=== PATIENT | female | born 1960 | race Caucasian/White ===

== ENCOUNTER → 2020-04-30 13:29 | Outpatient (CLI) | payer OTHER, SELFPAY ==
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
== END ==
PROVIDERS: PCP Family Medicine; Visit Provider Family Medicine
DX: M54.6 Pain in thoracic spine (principal); M19.012 Primary osteoarthritis, left shoulder
CPT/HCPCS: 72072; 73020

== ENCOUNTER 2020-05-04 17:46 | Outpatient (CLI) | payer OTHER, SELFPAY ==
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
== END 2020-05-04 17:47 | disposition home or self-care (01) ==
PROVIDERS: PCP Family Medicine; Visit Provider Family Medicine
DX: M47.812 Spondylosis without myelopathy or radiculopathy, cervical region (principal); R51 Headache
CPT/HCPCS: 70450; 72125

== ENCOUNTER → 2020-07-09 17:55 | Outpatient (CLI) | payer OTHER, SELFPAY ==
--- NOTE | ~2020-07-09 | MR_ITS ---
EXAMINATION: MR shoulder LT wo con DATE: 07/09/2020 18:55 INDICATION: Left shoulder pain. Inability to elevate the left arm. TECHNIQUE: Magnetic resonance imaging (MRI) of the left shoulder was performed without intravenous co ntrast. Sequences included axial PD-weighted FS FSE, coronal oblique PD-weighted FS FSE, coronal obli que T2-weighted FS FSE, sagittal PD-weighted FS FSE, and sagittal T1-weighted SE. COMPARISON: None. FINDINGS: Coracoacromial arch: The acromion undersurface is flat in morphology (type I). The coracoacromial ligament is normal. Mild acromioclavicular osteoarthritis. Rotator cuff: The supraspinatus, infraspinatus and teres minor tendons are normal. The subscapularis tendon is norm al. Normal rotator cuff muscle bulk and signal. Biceps tendon, glenoid labrum and glenohumeral cartilage: Mild tendinopathy of the intra-articular long head biceps tendon without discrete tear. Glenoid labru m is small but without discrete tear. There is mild posterior predominant nonuniform joint space narr owing with cartilage thinning but with smooth chondral surface. Fluid: Physiologic amount of fluid in the glenohumeral joint and biceps tendon sheath. No loose osteochondra l bodies. Mild increased fluid signal in the subacromial/subdeltoid bursa consistent with minimal bur sitis. Bones: Bone alignment is normal. No fracture or pathologic marrow replacing process. IMPRESSION: 1. Mild glenohumeral and acromioclavicular osteoarthritis. 2. Mild tendinopathy without discrete tear of the intra-articular long head biceps tendon. 3. Minimal subacromial/subdeltoid bursitis. Reviewed, dictated and finalized at location A. IMPRESSION: 1. Mild glenohumeral and acromioclavicular osteoarthritis. 2. Mild tendinopathy without discrete tear of the intra-articular long head bic eps tendon. 3. Minimal subacromial/subdeltoid bursitis.
== END ==
PROVIDERS: PCP Family Medicine; Visit Provider Family Medicine
DX: M19.012 Primary osteoarthritis, left shoulder (principal); M75.52 Bursitis of left shoulder
CPT/HCPCS: 73221

== ENCOUNTER → 2020-08-14 10:48 | Outpatient (CLI) | payer OTHER, SELFPAY ==
--- NOTE | ~2020-08-14 | CT_ITS ---
EXAMINATION: CT abdomen pelvis wo con DATE: 08/14/2020 11:04 INDICATION: Lower abdominal pain TECHNIQUE: Computed tomography (CT) of the abdomen and pelvis was performed without intravenous contr ast. Automated exposure control and iterative reconstruction technique were employed. The dose-length product was 957.69 mGy-cm. COMPARISON: None FINDINGS: Linear band of likely postoperative scarring at the left breast. Lung bases are clear. Heart size is normal. No pericardial or pleural effusion. There are 3 low-attenuation hepatic cysts the largest in the right lobe measuring 11 mm and unchanged 12 mm exophytic cyst along the lateral margin of the lef t hepatic lobe. Gallbladder, spleen, pancreas and bilateral adrenal glands are normal. A couple low-a ttenuation left renal cysts the largest measuring 2.0 cm at the upper pole. 8 nonobstructing stones i n the right kidney the largest measuring 5 mm at the lower pole a single 1 mm stone in the mid left k idney. No hydronephrosis or stones along the ureters. Bladder is normal. The uterus is not identified and has likely been surgically resected. There is moderate colonic diverticulosis with a sigmoid pre dominance. There is no adjacent inflammatory change to suggest diverticulitis. Small bowel and appen justino are normal. No free intraperitoneal gas or fluid. No pathologically enlarged abdominal or pelvic lymphadenopathy. Mild lumbar spondylosis. IMPRESSION: 1. Bilateral nonobstructing nephrolithiasis. 2. Diverticulosis. Reviewed, dictated and finalized at [facility]. COURIER
== END ==
PROVIDERS: Visit Provider Family Medicine
DX: N20.0 Calculus of kidney (principal); K57.30 Diverticulosis of large intestine without perforation or abscess without bleeding; K76.89 Other specified diseases of liver; N28.1 Cyst of kidney, acquired
CPT/HCPCS: 74176

== ENCOUNTER 2021-01-13 18:01 | Emergency (ER) | payer OTHER, SELFPAY ==
[2021-01-13] VITALS (9 sets, daily range): BP systolic 164–197; BP diastolic 100–107; PULSE 61–77; RESP 14–23; TEMP 36.7–36.8; O2SAT 98–100
--- NOTE | ~2021-01-13 | CT_ITS ---
EXAMINATION: CT abdomen pelvis wo con DATE: 01/13/2021 20:39 INDICATION: Right upper quadrant and epigastric abdominal pain TECHNIQUE: Computed tomography (CT) of the abdomen and pelvis was performed without intravenous contr ast. Automated exposure control and iterative reconstruction technique were employed. Exam dose: 105 7.97 mGy-cm total exam DLP. COMPARISON: 08/14/2020 CT abdomen pelvis 06/19/2018 CT abdomen pelvis FINDINGS: The lung bases are clear of infiltrate or consolidation. Heart size is within normal range. No pericardial or pleural effusion. Small sliding hiatal hernia. Stable up to 12 mm hepatic cyst. No interval hepatic space-occupying mass lesion. The gallbladder is present. No bile duct or pancreatic duct dilatation. No pancreatic mass lesion or calcification. Normal splenic size. Normal morphology of the adrenal glands. Up to approximately 5 right obstructing renal calculi ranging from subtle punctate calculi 2 5 mm siz e. No apparent right renal mass lesion. Stable up to approximately 2 cm left renal cysts. Approximately 2 mm nonobstructing left renal calculus. No left or right ureteral calculus or hydroureteronephrosis. Normal caliber of the abdominal aorta. No intraperitoneal or retroperitoneal or pelvic mass lesion or adenopathy or ascites. Status post hysterectomy. The urinary bladder is unremarkable. Diverticulosis of the left colon; no CT evidence of diverticulitis. Normal appendix. No bowel obstruction, bowel wall thickening, pneumatosis or intraperitoneal free air. No suspicious osteolytic or osteoblastic lesions. IMPRESSION: Stable hepatic and left renal cysts Bilateral nonobstructive nephrolithiasis Diverticulosis of the colon; no CT evidence of diverticulitis Small sliding hiatal hernia Reviewed, dictated and finalized at Location A. Reviewed, dictated and finalized at location A.
--- NOTE | ~2021-01-13 | XR_ITS ---
XR chest 2V DATE: 01/13/2021 19:34 INDICATION: Midsternal and right chest pain for 8 days. TECHNIQUE: PA and lateral views COMPARISON: 02/21/2008 two-view chest FINDINGS: Normal heart size. Mild aortic unfolding/tortuosity. No hilar or mediastinal enlargement is evident. No pulmonary infiltrate or consolidation, pleural effusion or pulmonary vascular congestion or pneumo thorax. Diffuse osteopenia. Dextro scoliosis and degenerative change of the thoracic spine. IMPRESSION: No active cardiopulmonary disease Reviewed, dictated and finalized at location A.
--- NOTE | 2021-01-13 18:11 | ECG_ITS ---
Measurements Intervals [place] Rate: 54 P: 27 [place]: 158 QRS: 27 QRSD: 93 T: 27 QT: 416 QTc: 397 Interpretive Statements SINUS BRADYCARDIA BORDERLINE ST ABNORMALITY- INFERIOR LEADS BASELINE ARTIFACT- I, II, AVR, AVL BORDERLINE ECG Electronically Signed On 01-13-2021 20:00:45 CDT by Gary Aaron D.O.
[2021-01-13 18:30] LABS: Basophils Percent Auto 0.6 % (0.2-1.2); Eosinophils Absolute Auto 0.2 K/mm3 (0-0.3); Hematocrit 40.2 % (37.0-47.0); Hemoglobin 13.2 g/dL (12.0-15.0); Immature Granulocyte Absolute 0.01 K/mm3 (0.00-0.031); Immature Granulocyte Percent A 0.2 % (0-0.5); Lymphocytes Absolute Auto 1.55 K/mm3 (0.9-3.2); Lymphocytes Percent Auto 29.5 % (18.3-44.2); Mean Corpuscular HGB Conc 32.8 g/dl (32-36); Mean Corpuscular Hemoglobin 30.1 pg (26-34); Mean Corpuscular Volume 91.8 fl (80-100); Mean Platelet Volume 9.3 fl (7.4-10.4); Monocytes Absolute Auto 0.4 K/mm3 (0.1-0.6); Monocytes Percent Auto 7.6 % (2.6-8.5); Neutrophils Absolute Auto 3.1 K/mm3 (1.3-6.7); Neutrophils Percent Auto 59.1 % (45.5-73.1); Platelet Count Result 257 k/mm3 (150-375); Red Blood Count 4.38 M/mm3 (4.2-5.4); Red Cell Distribution Width 12.7 % (11.5-14.5); White Blood Count 5.3 K/mm3 (4.5-10.0)
[2021-01-13 18:41] LABS: Anion Gap 5 mmol/L (8-16); Blood Urea Nitrogen 13 mg/dL (7-17); Calcium 9.7 mg/dL (8.4-10.2); Carbon Dioxide 30 mmol/L (22-30); Chloride 105 mmol/L (98-107); Estimated CRCL calculation 90 ml/min; Estimated Glomerular Filt Rate > 60; Glucose 100 mg/dL (65-105); INR 1.1; Prothrombin Time 14.4 Seconds (11.1-14.7); Sodium 140 mmol/L (137-145)
[2021-01-13 18:42] LABS: Partial Thromboplastin Time 27.7 SECONDS (22.3-36.8)
[2021-01-13 18:52] LABS: Troponin I < 0.012 ng/mL (0.000-0.034)
--- NOTE | 2021-01-13 20:56 | ED.GENADULT ---
HPI - General Adult General Chief complaint: Chest Pain Stated complaint: midsternal chest pain Time Seen by Provider: 01/13/21 20:13 History of Present Illness HPI narrative: Patient is a 60-year-old female who presents to the emergency department with chief complaint of epigastric/chest pain. Patient reports has been having discomfort for the last 8 to 9 days reports it radiates to her back. The patient states not improved by anything and nor is it worsened by anything. Patient denies nausea vomiting denies fevers patient reports that she has prior surgical history for [employer] surgeries but is not had her gallbladder or appendix removed. Patient states that the discomfort in her belly feels similar to when she had a laparoscopy and had pain from the gas postoperative. Related Data Home Medications Medication Instructions Recorded Confirmed latanoprost 0.005 % eye drops 1 drop EACH EYE DAILY 08/27/19 04/30/20 Allergies Allergy/AdvReac Type Severity Reaction Status Date / Time iodine Allergy Intermediate Swelling Verified 12/08/20 15:48 Iodinated Contrast Media Allergy Unknown Swelling Verified 12/08/20 15:48 of Lip/Tongue/Throat latex Allergy Unknown Rash Verified 12/08/20 15:48 povidone Allergy Unknown Rash Verified 12/08/20 15:48 soap Allergy Unknown rash Verified 12/08/20 15:48 Contrast Media Allergy Unknown Swelling Uncoded 12/08/20 15:48 of Lip/Tongue/Throat Review of Systems Review of Systems: Narrative: A 10 system review of systems was completed on the patient and is negative except for what is stated in the HPI. Nursing and ancillary documentation was reviewed. [facility] Family History Family History Father Hypertension Family history of alcoholism Cerebrovascular accident Acute myocardial infarction Family history of heart disease in male family member before age 55 Mother Family history of alcoholism Family history of chronic obstructive pulmonary disease Grandparent Family history of hearing loss Family history of osteoporosis Family history of glaucoma Family history of chronic obstructive pulmonary disease Family history of Alzheimer's disease Family history of heart disease in male family member before age 55 Other Family history of arthritis Family history of cardiovascular disease Family history of gastrointestinal disorder Social History Social History Smoking status: Never smoker Second hand tobacco smoke exposure: No Alcohol intake: never Substance use: never Exam Narrative: Exam Narrative: GENERAL: Well-appearing, well-nourished, and in no acute distress. HEAD: Normocephalic, atraumatic. EYES: PERRLA and EOMI. ENT: Nares clear, no rhinorrhea or epistaxis. Mucous membranes moist. NECK: Supple. CHEST: Clear to auscultation. No respiratory distress. HEART: Regular rate and rhythm. No murmur heard. Normal peripheral pulses. ABDOMEN: Soft, tenderness to palpation in the epigastric region and right upper quadrant, nondistended, normal active bowel sounds. EXTREMITIES: Normal range of motion. No edema. SKIN: Warm, dry, no rash. NEURO: No focal deficits. Alert and oriented x3. PSYCH: Normal mood and affect. Course Vital Signs Vital signs: Vital Signs Temperature 36.7 C 01/13/21 18:12 Pulse Rate 68 01/13/21 18:12 Respiratory Rate 20 01/13/21 18:12 Blood Pressure 178/100 H 01/13/21 18:12 Pulse Oximetry 99 01/13/21 18:12 Temperature 36.8 C 01/13/21 20:12 Pulse Rate 77 01/13/21 21:01 Respiratory Rate 23 H 01/13/21 21:01 Blood Pressure 197/104 H 01/13/21 20:16 Pulse Oximetry 100 01/13/21 21:01 Medical Decision Making Vital Signs Vital Signs: Vital Signs Temperature 36.7 C 01/13/21 18:12 Pulse Rate 68 01/13/21 18:12 Respiratory Rate 20 01/13/21 18:12 Blood Pressure 178/1
[2021-01-13] MEDS: DICYCLOMINE HCL INJ 20 MG/2 ML VIAL IM (21:19)
[2021-01-13] MEDS: ONDANSETRON INJ 4 MG/2 ML VIAL IV PUSH (21:21)
[2021-01-13 21:24] LABS: Alanine Aminotransferase 14 U/L (4-35); Albumin Level 4.5 g/dL (3.5-5.1); Alkaline Phosphatase 76 U/L (38-126); Aspartate Amino Transferase 19 U/L (14-36); Bilirubin,Total 0.4 mg/dL (0.2-1.3); Lipase 52 U/L (23-300)
[2021-01-13] MEDS: SODIUM CHLORIDE 0.9% IV 1,000 ML 999 ML IV CONT (21:24)
--- NOTE | 2021-01-13 21:49 | PC.NURSE ---
Per EDP [place], no 3 hour troponin needed.
[2021-01-13] MEDS: BELLADONNA ALK/PHENOB ELIX 10 ML, MAG HYDROX/ALUMINUM HYD/SIMETH 30 ML, LIDOCAINE HCL 2... PO (21:55)
== END 2021-01-13 22:49 | disposition home or self-care (01) ==
PROVIDERS: Emergency Medicine; Emergency Provider Emergency Medicine; PCP Family Medicine
DX: K44.9 Diaphragmatic hernia without obstruction or gangrene (principal); K29.00 Acute gastritis without bleeding
CPT/HCPCS: 36415; 71046; 74176; 80048; 80076; 83690; 84484; 85025; 85610; 85730; 93005; 96361; 96372; 96374; 99284; A9270; J0500; J2405; J7030

== ENCOUNTER → 2021-10-28 10:15 | Outpatient (CLI) | payer OTHER, SELFPAY ==
--- NOTE | ~2021-10-28 | XR_ITS ---
UGI-AIR CONTRAST/SMALL BOWEL INDICATION: Diaphragmatic hernia. Abdomen pain. TECHNIQUE: Serial images of the upper GI tract structures and small bowel are performed following ora l administration of barium using double contrast technique. COMPARISON: CT dated 01/13/2021 FINDINGS: There is normal esophageal contractility with normal passage of contrast into the stomach. There is a small sliding hiatal hernia with gastroesophageal reflux. There is mild persistent narrowi ng of the pylorus with incomplete distention of the duodenal bulb. There is mildly delayed passage of contrast from the stomach into the small bowel. The duodenal sweep is in normal position. The mucos al pattern of the small bowel is unremarkable with normal transit time to the colon. IMPRESSION: 1: Mild persistent narrowing of the pylorus with incomplete distention of the duodenal bulb, most lik bin related to underlying inflammatory disease/gastritis. Recommend GI consultation. 2: Small sliding hiatal hernia with gastroesophageal reflux. Reviewed, dictated and finalized at location B. AND FARMER IMPRESSION: 1: Mild persistent narrowing of the pylorus with incomplete distention of the d uodenal bulb, most likely related to underlying inflammatory disease/gastritis. Recommend GI consultation. 2: Small sliding hiatal hernia with gastroesophageal reflux.
== END ==
PROVIDERS: Visit Provider Family Medicine
DX: K44.9 Diaphragmatic hernia without obstruction or gangrene (principal); K21.9 Gastro-esophageal reflux disease without esophagitis
CPT/HCPCS: 74246; 74248

== ENCOUNTER 2021-11-11 08:50 | Outpatient (CLI) | payer OTHER, SELFPAY | END 2021-11-11 08:51 | disposition home or self-care (01) | LOC: ANHBWCLAB 08:51 | PROVIDERS: PCP Family Medicine; Visit Provider Family Medicine | DX: K44.9 Diaphragmatic hernia without obstruction or gangrene (principal); K21.9 Gastro-esophageal reflux disease without esophagitis | CPT/HCPCS: 36415; 86003 ==

== ENCOUNTER 2021-11-12 10:53 | Outpatient (CLI) | payer OTHER, SELFPAY ==
[2021-11-16 18:44] LABS: H pylori Ag Stool Not Detected (Not Detected)
== END 2021-11-12 10:54 | disposition home or self-care (01) ==
PROVIDERS: PCP Family Medicine; Visit Provider Family Medicine
DX: K44.9 Diaphragmatic hernia without obstruction or gangrene (principal); K21.9 Gastro-esophageal reflux disease without esophagitis
CPT/HCPCS: 87338

== ENCOUNTER 2021-11-17 07:12 | Outpatient (CLI) | payer OTHER, SELFPAY ==
--- NOTE | ~2021-11-17 | CT_ITS ---
EXAMINATION: CT abdomen wo con DATE: 11/17/2021 07:33 INDICATION: Unspecified abdominal pain TECHNIQUE: Computed tomography (CT) of the abdomen was performed without intravenous contrast. The do se-length product (DLP) was 913.08 mGy-cm. Automated exposure control and iterative reconstruction te chnique were employed. COMPARISON: 01/13/2021 FINDINGS: Minimal dependent atelectasis is present in the lung bases. The heart size is normal. There is a large volume of ascites. There is irregular wall thickening of the gastric antrum. The body and fundus of the stomach mildly distended. Although limited by absence of intravenous contrast, areas o f nodular peritoneal thickening are identified. There is infiltration of the omentum and small bowel mesentery. Cysts of the liver measure up to 11 mm. The spleen, pancreas, gallbladder, and adrenal gla nds are normal. There is a 2.3 cm cyst of the left kidney. Nonobstructing stones of the right kidney measure up to 6 mm. Is a 3 mm nonobstructing stone of the left kidney. IMPRESSION: 1. Malignant stricture of the gastric antrum, peritoneal carcinomatosis, and infiltration of the omen kaylee and small bowel mesentery, consistent with metastatic disease. 2. Large volume ascites. Reviewed, dictated and finalized at location A. RVISOR TITLE IMPRESSION: 1. Malignant stricture of the gastric antrum, peritoneal carcinomatosis, and in filtration of the omentum and small bowel mesentery, consistent with metastatic disease. 2. Large volume ascites.
--- NOTE | ~2021-11-17 | XR_ITS ---
EXAMINATION: XR barium swallow w SBFT DATE: 11/17/2021 09:59 INDICATION: Unspecified abdominal pain and distention. TECHNIQUE: The patient drank thick barium, gas-producing crystals, and thin barium. Fluoroscopy of th e esophagus, stomach, and small bowel was performed. Fluoroscopy exposure time was 0.4 minutes. Radio graphs of the abdomen were obtained. The total number of images was 233. COMPARISON: CT abdomen 11/17/2021 FINDINGS: ESOPHAGRAM: There is no mass or stricture of the esophagus. Esophageal motility is normal. There is no hiatal her karly. SMALL BOWEL SERIES: There is a stricture of the gastric antrum and pylorus. Contrast had progressed only to the proximal duodenum at 2 hours, and the exam was ended at that time. IMPRESSION: 1. Malignant stricture of the gastric antrum and pylorus. Paracentesis is recommended for diagnosis. Reviewed, dictated and finalized at location A. BUILDER WOOD IMPRESSION: 1. Malignant stricture of the gastric antrum and pylorus. Paracentesis is recom mended for diagnosis.
== END 2021-11-17 07:13 | disposition home or self-care (01) ==
LOC: ANHIMG 07:13
PROVIDERS: PCP Family Medicine; Visit Provider Family Medicine
DX: R10.9 Unspecified abdominal pain (principal); K44.9 Diaphragmatic hernia without obstruction or gangrene
CPT/HCPCS: 74150; 74240

== ENCOUNTER 2021-11-17 16:37 | Inpatient (IN) | payer OTHER, SELFPAY ==
--- NOTE | ~2021-11-17 | US_ITS ---
EXAMINATION: US venous doppler [facility] DATE: 11/18/2021 12:12 INDICATION: Bilateral lower limb edema TECHNIQUE: Malcolm scale images without and with compression and Doppler images of the bilateral lower e xtremity veins were obtained. COMPARISON: None FINDINGS: The right common femoral vein, profunda femoral vein, femoral vein, popliteal vein, peroneal trunk, p osterior tibial veins, and greater saphenous vein are patent. The left common femoral vein, profunda femoral vein, femoral vein, popliteal vein, peroneal trunk, po sterior tibial veins, and greater saphenous vein are patent. IMPRESSION: 1. Patent bilateral lower extremity veins. No evidence of deep venous thrombosis. Reviewed, dictated and finalized at location A. H REPAIR PERSON IMPRESSION: 1. Patent bilateral lower extremity veins. No evidence of deep venous thrombosi s.
--- NOTE | ~2021-11-17 | US_ITS ---
EXAMINATION: US paracentesis abd w/image DATE: 11/18/2021 14:13 INDICATION: Ascites. TECHNIQUE: The procedure and its risks and benefits were discussed with the patient. Potential risks discussed included bleeding and infection. The skin was prepped and draped in sterile fashion. 1% lid ocaine was used for local anesthesia. Under ultrasound guidance, a 5 Fr catheter with trochar was adv anced into the ascites in the left lower quadrant. Fluid was aspirated into vacuum bottles. The andrés ter was removed, and a dressing was applied. There were no immediate complications. FINDINGS: Ultrasound images demonstrate ascites and the catheter within the fluid. IMPRESSION: 1. Successful ultrasound-guided paracentesis yielding 3650 mL of clear yellow fluid. Reviewed, dictated and finalized at location A. N DRIER OPERATOR
[2021-11-17 17:16] VITALS: BMI 35.0
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
[2021-11-17 20:00] VITALS: BP 133/84; PULSE 84; RESP 18; TEMP 36.4; O2SAT 97
[2021-11-17 20:18] LABS: INR 1.2; Prothrombin Time 14.3 Seconds (11.1-14.7)
[2021-11-17 20:23] LABS: Alanine Aminotransferase 13 U/L (4-35); Alkaline Phosphatase 81 U/L (38-126); Anion Gap 8 mmol/L (8-16); Aspartate Amino Transferase 21 U/L (14-36); Bilirubin,Total 0.5 mg/dL (0.2-1.3); Blood Urea Nitrogen 13 mg/dL (7-17); Calcium 9.1 mg/dL (8.4-10.2); Carbon Dioxide 26 mmol/L (22-30); Chloride 105 mmol/L (98-107); Estimated CRCL calculation 88 ml/min; Estimated Glomerular Filt Rate > 60; Glucose 100 mg/dL (65-110); Potassium 3.7 mmol/L (3.4-5.0); Sodium 139 mmol/L (137-145)
[2021-11-17 20:31] LABS: Lactic Acid Reflex 0.6 mmol/L (0.7-2.1)
[2021-11-17 20:31] LABS: Magnesium 2.2 mg/dL (1.6-2.3)
[2021-11-17 21:03] VITALS: PULSE 84
[2021-11-17] MEDS: METOPROLOL TARTRATE INJ 5 MG/5 ML VIAL IV PUSH (21:03)
[2021-11-17] MEDS: PANTOPRAZOLE SODIUM IV 40 MG VIAL IV PUSH (21:04)
[2021-11-18] VITALS (11 sets, daily range): BP systolic 111–135; BP diastolic 63–93; PULSE 68–88; RESP 15–21; TEMP 36.2–37; O2SAT 95–98
--- NOTE | 2021-11-18 | ECG_ITS ---
Measurements Intervals [place] Rate: 71 P: 39 [place]: 150 QRS: 18 QRSD: 85 T: -12 QT: 393 QTc: 429 Interpretive Statements SINUS RHYTHM MINIMAL Q WAVES- HIGH LATERAL LEADS BORDERLINE ST-T WAVE ABNORMALITY- ANTEROLAT/INF LEADS BASELINE ARTIFACT- V4-V6 BORDERLINE ECG Electronically Signed On 11-18-2021 16:15:40 PLUNGER MACHINE OPERATOR by Gary Aaron D.O.
[2021-11-18] MEDS: MORPHINE SULFATE (*CRX) 2 MG/ML INJ IV PUSH (01:10)
[2021-11-18] MEDS: DEXTROSE 5%/0.9% SOD CHL 1,000 ML 50 ML IV CONT (04:05)
[2021-11-18] MEDS: ONDANSETRON INJ 4 MG/2 ML VIAL IV PUSH (05:42)
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
[2021-11-18 07:10] LABS: Basophils Absolute Auto 0.1 K/mm3 (0.0-0.1); Basophils Percent Auto 0.8 % (0.2-1.2); Eosinophils Absolute Auto 0.6 K/mm3 (0-0.3); Eosinophils Percent Auto 10.4 % (0-4.4); Hematocrit 38.1 % (37.0-47.0); Hemoglobin 11.8 g/dL (12.0-15.0); Immature Granulocyte Absolute 0.01 K/mm3 (0.00-0.031); Immature Granulocyte Percent A 0.2 % (0-0.5); Lymphocytes Absolute Auto 1.33 K/mm3 (0.9-3.2); Lymphocytes Percent Auto 22.4 % (18.3-44.2); Mean Corpuscular Hemoglobin 28.9 pg (26-34); Mean Corpuscular Volume 93.4 fl (80-100); Mean Platelet Volume 9.4 fl (7.4-10.4); Monocytes Absolute Auto 0.5 K/mm3 (0.1-0.6); Monocytes Percent Auto 8.6 % (2.6-8.5); Neutrophils Absolute Auto 3.4 K/mm3 (1.3-6.7); Neutrophils Percent Auto 57.6 % (45.5-73.1); Platelet Count Result 352 k/mm3 (150-375); Red Blood Count 4.08 M/mm3 (4.2-5.4); Red Cell Distribution Width 12.8 % (11.5-14.5); White Blood Count 5.9 K/mm3 (4.5-10.0)
[2021-11-18 07:17] LABS: Alanine Aminotransferase 12 U/L (4-35); Albumin Level 3.7 g/dL (3.5-5.1); Alkaline Phosphatase 76 U/L (38-126); Anion Gap 8 mmol/L (8-16); Aspartate Amino Transferase 20 U/L (14-36); Bilirubin,Total 0.3 mg/dL (0.2-1.3); Blood Urea Nitrogen 14 mg/dL (7-17); Calcium 8.9 mg/dL (8.4-10.2); Carbon Dioxide 28 mmol/L (22-30); Chloride 106 mmol/L (98-107); Estimated CRCL calculation 79 ml/min; Estimated Glomerular Filt Rate > 60; Glucose 112 mg/dL (65-110); Magnesium 2.3 mg/dL (1.6-2.3); Potassium 3.8 mmol/L (3.4-5.0); Sodium 142 mmol/L (137-145)
[2021-11-18] MEDS: PANTOPRAZOLE SODIUM IV 40 MG VIAL IV PUSH ×2 (09:52→20:23)
[2021-11-18] MEDS: METOPROLOL TARTRATE INJ 5 MG/5 ML VIAL IV PUSH ×2 (09:52→20:23)
[2021-11-18] MEDS: LACTATED RINGERS 1,000 ML 150 ML IV CONT (10:36)
--- NOTE | 2021-11-18 10:46 | WPDANESEPPF ---
Anes - Initial Pre Proc Eval Procedure: Operation Date: 11/18/21 13:00 Proposed Procedures p Esophagogastroduodenoscopy - Anthony Rojas MD Date/Time: 11/18/21 10:46 Surgeon: Gabriela Lance MD Pre Op Diagnosis: ascites pyloric stricture Patient Data Age: 61 Gender: F Height: 1.68 m Weight: 100.5 kg Last Vital Signs Temp 36.6 C 11/18/21 10:28 Pulse 71 11/18/21 10:28 Resp 18 11/18/21 10:28 BP 130/76 11/18/21 10:28 Pulse Ox 96 11/18/21 10:28 Allergies Allergy/AdvReac Type Severity Reaction Status Date / Time iodine Allergy Intermediate Swelling Verified 11/18/21 10:25 Iodinated Contrast Media Allergy Unknown Swelling Verified 11/18/21 10:25 of Lip/Tongue/Throat latex Allergy Unknown Rash Verified 11/18/21 10:25 povidone Allergy Unknown Rash Verified 11/18/21 10:25 soap Allergy Unknown rash Verified 11/18/21 10:25 Home Medications Medication Instructions Recorded Confirmed Type latanoprost 0.005 % eye drops 1 drop EACH EYE DAILY 08/27/19 11/17/21 History cholecalciferol (vitamin D3) 1,250 50,000 unit PO MONTHLY #4 tablet 07/30/21 11/17/21 Rx mcg (50,000 unit) tablet liothyronine 5 mcg tablet 5 mcg PO DAILY #90 tablet 09/13/21 11/17/21 Rx metoprolol tartrate 25 mg tablet 25 mg PO DAILY #90 tablet 09/13/21 11/17/21 Rx pantoprazole 40 mg tablet,delayed 40 mg PO BID #180 tablet 09/23/21 11/17/21 Rx release levothyroxine 50 mcg tablet 50 mcg PO DAILY #90 tablet 10/13/21 11/17/21 Rx tramadol 50 mg tablet 50 mg PO Q6H PRN 11/16/21 11/17/21 History hydrocodone 7.5 mg-acetaminophen 10 ml PO Q6H PRN #200 ml 11/17/21 11/17/21 Rx 325 mg/15 mL oral solution Laboratory Tests 11/17/21 11/17/21 11/17/21 19:57 19:57 19:57 WBC RBC Hgb Hct MCV MCH MCHC RDW Plt Count MPV Immature Gran % (Auto) Neut % (Auto) Lymph % (Auto) [place] % (Auto) Eos % (Auto) Baso % (Auto) Lymph # (Auto) [place] # (Auto) Eos # (Auto) Baso # (Auto) Abs Immat Gran (auto) Absolute Neuts (auto) Absolute Nucleated RBC Nucleated RBC % PT INR D-Dimer Sodium 139 mmol/L mmol/L (137-145) Potassium 3.7 mmol/L mmol/L (3.4-5.0) Chloride 105 mmol/L mmol/L (98-107) Carbon Dioxide 26 mmol/L mmol/L (22-30) Anion Gap 8 mmol/L mmol/L (8-16) BUN 13 mg/dL mg/dL (7-17) Creatinine 0.70 mg/dL mg/dL (0.7-1.0) Estim Creat Clear Calc 88 ml/min ml/min Estimated GFR > 60 (59 - ) Glucose 100 mg/dL mg/dL (65-110) Lactic Acid 0.6 mmol/L L mmol/L (0.7-2.1) Calcium 9.1 mg/dL mg/dL (8.4-10.2) Magnesium Total Bilirubin 0.5 mg/dL mg/dL (0.2-1.3) AST 21 U/L U/L (14-36) ALT 13 U/L U/L (4-35) Alkaline Phosphatase 81 U/L U/L (38-126) C-Reactive Protein Total Protein 7.0 g/dL g/dL (6.3-8.2) Albumin 4.0 g/dL g/dL 4.0 g/dL g/dL (3.5-5.1) (3.5-5.1) 11/17/21 11/17/21 11/18/21 19:58 19:58 06:06 WBC RBC Hgb Hct MCV MCH MCHC RDW Plt Count MPV Immature Gran % (Auto) Neut % (Auto) Lymph % (Auto) [place] % (Auto) Eos % (Auto) Baso % (Auto) Lymph # (Auto) [place] # (Auto) Eos # (Auto) Baso # (Auto) Abs Immat Gran (auto) Absolute Neuts (auto) Absolute Nucleated RBC Nucleated RBC % PT 14.3 Seconds Sec
[2021-11-18] MEDS: BENZOCAINE (*SP) 60 ML SPRAY CAN (HURRICAINE) 1 SPRAY MUCOUS MEM (11:19)
[2021-11-18] MEDS: FUROSEMIDE INJ 40 MG/4 ML VIAL IV PUSH (13:50)
[2021-11-18] MEDS: LIOTHYRONINE SODIUM 5 MCG TABLET PO (13:50)
[2021-11-18] MEDS: SPIRONOLACTONE 12.5 MG TABLET PO ×2 (13:50→17:39)
[2021-11-18 14:42] LABS: Appearance Peritoneal Fluid Hazy (Clear); Color Peritoneal Fluid Yellow (Colorless); Source Peritoneal Fluid Peritoneal Fluid
[2021-11-18 14:43] LABS: Eosinophils Peritoneal Fluid 16 %; Lymphocytes Peritoneal Fluid 51 %; Macrophages Peritoneal Fluid 8 %; Monocytes Peritoneal Fluid 10 %; Neutrophils Peritoneal Fluid 3 % (0-25); Nucleated Cells Peritoneal Flu 1326 /uL (0-500); RBC Peritoneal Fluid 763 /uL (0-100000)
--- NOTE | 2021-11-18 14:43 | PM.IMPN ---
Progress Note: A&P Assessment and Plan (1) Abdominal ascites: Code(s): R18.8 - Other ascites Status: Acute Assessment and Plan: The patient had an abdominal CT today which was read as the following 1. Malignant stricture of the gastric antrum, peritoneal carcinomatosis, and infiltration of the omentum and small bowel mesentery, consistent with metastatic disease. 2. Large volume ascites. I did call Interventional Radiology to notify them that the patient will need a paracentesis for tomorrow. The patient is not on any blood thinners I will get some coagulation studies. The patient was scheduled for PET scan however explained that we do not do PET scans inpatient. She does have a history of having breast cancer in the past. She she may follow-up with outpatient PET scan at a later date. 11/18/2021 interval history: CT scan of the abdomen showed gastric outlet syndrome patient was seen by GI and had a EGD and showed an ulcerated mass extending from antrum to the angularis appears to impeging upon the pylorus but the pylorus able to be transferred with endoscope. multiple biopsies are taken, patient also has ascites and had a paracentesis 3650 ml clear yellow fluid was collected, most likely transudate labs are pending, also started the patient on Lasix and spironolactone to help diurese the patient will continue to monitor and further recommendation to follow. (2) Gastric outlet obstruction: Code(s): K31.1 - Adult hypertrophic pyloric stenosis Status: Acute Assessment and Plan: GI has been consulted. Will continue with IV fluids and pain medication. She is NPO at this time. Continue with pain management and IV fluids (3) Hypothyroidism: Code(s): E03.9 - Hypothyroidism, unspecified Status: Chronic Assessment and Plan: Continue with home medications. Check thyroid level (4) Glaucoma: Code(s): H40.9 - Unspecified glaucoma Status: Chronic Assessment and Plan: Continue with eyedrops. (5) Frequent PVCs: Code(s): I49.3 - Ventricular premature depolarization Status: Chronic Assessment and Plan: The patient has been on metoprolol. I will do labetalol instead. (6) GERD with esophagitis: Code(s): K21.00 - Gastro-esophageal reflux disease with esophagitis, without bleeding Status: Chronic Assessment and Plan: Continue with pantoprazole (7) Cataracts, bilateral: Code(s): H26.9 - Unspecified cataract Status: Acute Assessment and Plan: Not yet extracted. Subjective Date/time seen: 11/18/21 14:43 HPI: this is a 61-year-old female patient who recently had an EGD and was found to have nausea vomiting diarrhea in acid reflux since . She has been progressively getting worse. The patient also found that she was COVID positive week after . Patient stated that her abdomen just kept getting bigger but she was losing weight. She said she lost her taste and smell during COVID. She was eating less but her abdomen was getting bigger. The patient is a nondrinker. The patient also had some edema to her lower extremities. The patient has a history of hemorrhoids and they occasionally bleed. The patient also has a hiatal hernia and acid reflux. The patient has been taking Protonix. She has had a history of having gastric polyps in the past and has had an EGD and colonoscopy [place] [address] Rojas. I received a phone call from Alexandra Knight aPN who had asked us to admit the patient directly to the hospital as the patient did not want to go to the emergency room wait 6 hours. We accepted the patient as observation status on the date of service of 11/17/2021. Chief Complaint: Ascites, 11/18/2021 interval history: CT scan of the abdomen showed gastric outlet syndrome patient was seen by GI and had a EGD and showed an ulcerated mass extending from antrum to the angularis appears to impeging upon the
[2021-11-18 14:44] LABS: Mesothelial Cells Peritoneal Fluid 12 %
[2021-11-18] MEDS: LATANOPROST 0.005% OP SOLN 2.5 ML BTL 1 DROP EACH EYE (20:24)
[2021-11-19] VITALS (8 sets, daily range): BP systolic 98–117; BP diastolic 57–83; PULSE 71–87; RESP 14–18; TEMP 36.1–37.5; O2SAT 65–98; BMI 35.0
[2021-11-19] MEDS: DEXTROSE 5%/0.9% SOD CHL 1,000 ML 50 ML IV CONT (03:39)
[2021-11-19] MEDS: LEVOTHYROXINE SODIUM 50 MCG TABLET PO (06:16)
[2021-11-19 06:35] LABS: Hematocrit 34.9 % (37.0-47.0); Hemoglobin 11.4 g/dL (12.0-15.0); Mean Corpuscular HGB Conc 32.7 g/dl (32-36); Mean Corpuscular Hemoglobin 29.3 pg (26-34); Mean Corpuscular Volume 89.7 fl (80-100); Mean Platelet Volume 9.2 fl (7.4-10.4); Platelet Count Result 308 k/mm3 (150-375); Red Blood Count 3.89 M/mm3 (4.2-5.4); Red Cell Distribution Width 12.6 % (11.5-14.5); White Blood Count 5.7 K/mm3 (4.5-10.0)
[2021-11-19 06:48] LABS: Anion Gap 8 mmol/L (8-16); Blood Urea Nitrogen 11 mg/dL (7-17); Carbon Dioxide 25 mmol/L (22-30); Chloride 105 mmol/L (98-107); Estimated CRCL calculation 102 ml/min; Estimated Glomerular Filt Rate > 60; Glucose 121 mg/dL (65-110); Potassium 3.4 mmol/L (3.4-5.0); Sodium 138 mmol/L (137-145)
[2021-11-19] MEDS: SPIRONOLACTONE 12.5 MG TABLET PO ×2 (09:17→17:39)
[2021-11-19] MEDS: METOPROLOL TARTRATE INJ 5 MG/5 ML VIAL IV PUSH (09:17)
[2021-11-19] MEDS: LIOTHYRONINE SODIUM 5 MCG TABLET PO (09:17)
[2021-11-19] MEDS: PANTOPRAZOLE SODIUM IV 40 MG VIAL IV PUSH ×2 (09:17→21:19)
[2021-11-19] MEDS: FUROSEMIDE INJ 40 MG/4 ML VIAL IV PUSH (09:17)
--- NOTE | 2021-11-19 09:45 | WPDGIPROGNO ---
Progress Note: A&P Assessment and Plan (1) Gastric outlet obstruction: Code(s): K31.1 - Adult hypertrophic pyloric stenosis Status: Acute Assessment and Plan: Patient with gastric outlet obstruction. She has an antral gastric mass. Histology pending. Plan is for liquid diet. she may have difficulty going home if she can tolerate liquid diet will have to observe how intake is accomplished. (2) Gastric mass: Code(s): K31.89 - Other diseases of stomach and duodenum Status: Acute Assessment and Plan: Ulcerated gastric mass noted in the antrum. Histology pending. Oncology has been consulted. Await their input site. (3) Metastatic cancer: Code(s): C79.9 - Secondary malignant neoplasm of unspecified site Status: Acute Assessment and Plan: CT scan suggest carcinomatosis. This likely accounts for ascites. Cytology pending. (4) Abdominal ascites: Code(s): R18.8 - Other ascites Status: Acute Assessment and Plan: ascites evident on CT scan. Now status post paracentesis with 5L removed. Likely this is secondary to tumor. I do not expect too much of a response from diuretics at this point. Will need to monitor may need paracentesis at intervals if it reaccumulates. Subjective Date/time seen: 11/19/21 09:45 Patient alert more comfortable today. Still has some trouble with liquid intake. Had abdominal paracentesis yesterday. No difficulties with bowel movements. Review of Systems Review of Systems: All systems reviewed & are unremarkable except as noted in HPI and below Exam Narrative: Physical exam reveals patient be alert. Vital signs stable. HEENT exam unremarkable as she is anicteric. Lungs are clear. Heart without murmur. Abdomen obese. Modest distention noted somewhat softer after paracentesis yesterday. Objective Data Vital Signs Vital Signs: Vital Signs - 24 hr 11/18/21 09:52 11/18/21 10:28 11/18/21 11:22 Temperature 97.8 F Pulse Rate 82 71 70 Respiratory Rate 18 16 Blood Pressure 130/76 124/81 Pulse Oximetry 96 95 11/18/21 11:32 11/18/21 11:42 11/18/21 12:00 Temperature 97.2 F L Pulse Rate 69 71 75 Respiratory Rate 21 H 15 16 Blood Pressure 131/90 135/93 H 121/71 Pulse Oximetry 96 97 98 11/18/21 16:00 11/18/21 20:00 11/18/21 20:23 Temperature 97.2 F L 98.6 F Pulse Rate 86 68 88 Respiratory Rate 16 16 Blood Pressure 121/74 132/63 Pulse Oximetry 95 97 11/19/21 00:00 11/19/21 04:00 11/19/21 08:00 Temperature 97.7 F 98.4 F 98.2 F Pulse Rate 76 76 71 Respiratory Rate 16 18 18 Blood Pressure 104/57 L 98/62 L 112/65 Pulse Oximetry 96 97 94 11/19/21 09:17 Temperature Pulse Rate 82 Respiratory Rate Blood Pressure Pulse Oximetry Intake/Output Intake/Output: Intake & Output 11/16/21 11/17/21 11/18/21 11/19/21 23:59 23:59 23:59 23:59 Intake Total 1210 1240 Output Total 4550 100 Balance -3340 1140 Meds/Results Medications: Active Medications Generic Name Dose Route Start Last Admin Trade Name Freq PRN Reason Stop Dose Admin Furosemide 40 mg 11/18/21 10:00 11/19/21 09:17 Furosemide Inj 40 Mg/4 Ml Vial IV PUSH 40 mg DAILY SHANA Administration Dextrose/Sodium Chloride 1,000 mls @ 50 mls/hr 11/17/21 18:55 11/19/21 09:39 Dextrose 5% Sodium Chloride 0.9% IV CONT Not Given .Q20H SHANA Latanoprost 1 drop 11/18/21 21:00 11/18/21 20:24 Latanoprost 0.005% Op Soln 2.5 Ml Btl EACH EYE 1 drop HS SHANA Administration Levothyroxine Sodium 50 mcg 11/18/21 06:30 11/19/21 06:16 Levothyroxine Sodium 50 Mcg Tablet PO 50 mcg DAILY@0630 SHANA Administration Liothyronine Sodium 5 mcg 11/18/21 09:00 11/19/21 09:17 Liothyronine Sodium 5 Mcg Tablet PO 12/18/21 08:59 5 mcg DAILY SHANA Administration Metoprolol Tartrate 5 mg 11/17/21 21:00 11/19/21 09:17 Metoprolol Tartrate Inj 5 Mg/5 Ml Vial IV PUSH 5 mg Q12H SHANA Administra
--- NOTE | 2021-11-19 15:26 | PM.IMPN ---
Progress Note: A&P Assessment and Plan (1) Abdominal ascites: Code(s): R18.8 - Other ascites Status: Acute Assessment and Plan: The patient had an abdominal CT today which was read as the following 1. Malignant stricture of the gastric antrum, peritoneal carcinomatosis, and infiltration of the omentum and small bowel mesentery, consistent with metastatic disease. 2. Large volume ascites. I did call Interventional Radiology to notify them that the patient will need a paracentesis for tomorrow. The patient is not on any blood thinners I will get some coagulation studies. The patient was scheduled for PET scan however explained that we do not do PET scans inpatient. She does have a history of having breast cancer in the past. She she may follow-up with outpatient PET scan at a later date. 11/18/2021 interval history: CT scan of the abdomen showed gastric outlet syndrome patient was seen by GI and had a EGD and showed an ulcerated mass extending from antrum to the angularis appears to impeging upon the pylorus but the pylorus able to be transferred with endoscope. multiple biopsies are taken, patient also has ascites and had a paracentesis 3650 ml clear yellow fluid was collected, most likely transudate labs are pending, also started the patient on Lasix and spironolactone to help diurese the patient will continue to monitor and further recommendation to follow. 11/19/2021 interval history: CT scan of the abdomen showed gastric outlet syndrome patient was seen by GI and had a EGD and showed an ulcerated mass extending from antrum to the angularis appears to impeging upon the pylorus but the pylorus able to be transferred with endoscope. multiple biopsies are taken, patient also has ascites and had a paracentesis 3650 ml clear yellow fluid was collected, most likely transudate labs are pending, also started the patient on Lasix and spironolactone to help diurese, patient stats she is urinating more and ascites is improving, patient with ulcerated mass will be seen by Dr. Armstrong, Oncologist and further recommendation to follow, will continue to monitor and further recommendation to follow. (2) Gastric outlet obstruction: Code(s): K31.1 - Adult hypertrophic pyloric stenosis Status: Acute Assessment and Plan: GI has been consulted. Will continue with IV fluids and pain medication. She is NPO at this time. Continue with pain management and IV fluids (3) Hypothyroidism: Code(s): E03.9 - Hypothyroidism, unspecified Status: Chronic Assessment and Plan: Continue with home medications. Check thyroid level (4) Glaucoma: Code(s): H40.9 - Unspecified glaucoma Status: Chronic Assessment and Plan: Continue with eyedrops. (5) Frequent PVCs: Code(s): I49.3 - Ventricular premature depolarization Status: Chronic Assessment and Plan: The patient has been on metoprolol. I will do labetalol instead. (6) GERD with esophagitis: Code(s): K21.00 - Gastro-esophageal reflux disease with esophagitis, without bleeding Status: Chronic Assessment and Plan: Continue with pantoprazole (7) Cataracts, bilateral: Code(s): H26.9 - Unspecified cataract Status: Acute Assessment and Plan: Not yet extracted. Subjective Date/time seen: 11/19/21 15:26 11/19/2021 interval history: CT scan of the abdomen showed gastric outlet syndrome patient was seen by GI and had a EGD and showed an ulcerated mass extending from antrum to the angularis appears to impeging upon the pylorus but the pylorus able to be transferred with endoscope. multiple biopsies are taken, patient also has ascites and had a paracentesis 3650 ml clear yellow fluid was collected, most likely transudate labs are pending, also started the patient on Lasix and spironolactone to help diurese, patient stats she is urinating more and ascites is improving, patient with ulcerated mass w
[2021-11-19 16:50] LABS: Add Urine Microscopic? YES; Appearance Urine Clear (Clear); Bacteria Urine Trace /hpf; Bilirubin Urine Negative (Negative); Blood Urine 1+ (Negative); Color Urine Yellow (Yellow); Glucose Urine UA Negative (Negative); Ketones Urine Negative (Negative); Leukocyte Esterase Ur 3+ LEU/UL (NEGATIVE); Mucus Urine Heavy /lpf; Nitrate Urine Negative (Negative); Protein Urine Negative (Negative); Specific Grav Ur 1.019 (1.001-1.035); Squamous Epithelial Cell Urine Moderate /hpf (Few); WBC Urine 51-75 /hpf (0-3)
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
[2021-11-19] MEDS: ONDANSETRON INJ 4 MG/2 ML VIAL IV PUSH (17:54)
[2021-11-19] MEDS: LATANOPROST 0.005% OP SOLN 2.5 ML BTL 1 DROP EACH EYE (21:19)
[2021-11-20] VITALS: BP 122/69; PULSE 76; RESP 16; TEMP 37; O2SAT 95
[2021-11-20 04:00] VITALS: BP 121/75; PULSE 73; RESP 16; TEMP 36.9; O2SAT 97
[2021-11-20] MEDS: LEVOTHYROXINE SODIUM 50 MCG TABLET PO (06:20)
[2021-11-20] MEDS: DEXTROSE 5%/0.9% SOD CHL 1,000 ML 50 ML IV CONT (06:23)
[2021-11-20 06:56] LABS: Hematocrit 38.7 % (37.0-47.0); Hemoglobin 12.3 g/dL (12.0-15.0); Mean Corpuscular HGB Conc 31.8 g/dl (32-36); Mean Corpuscular Hemoglobin 29.1 pg (26-34); Mean Corpuscular Volume 91.5 fl (80-100); Mean Platelet Volume 9.3 fl (7.4-10.4); Platelet Count Result 336 k/mm3 (150-375); Red Blood Count 4.23 M/mm3 (4.2-5.4); Red Cell Distribution Width 12.6 % (11.5-14.5); White Blood Count 6.3 K/mm3 (4.5-10.0)
[2021-11-20 07:15] LABS: Anion Gap 8 mmol/L (8-16); Blood Urea Nitrogen 10 mg/dL (7-17); Calcium 8.6 mg/dL (8.4-10.2); Carbon Dioxide 28 mmol/L (22-30); Chloride 102 mmol/L (98-107); Estimated CRCL calculation 87 ml/min; Estimated Glomerular Filt Rate > 60; Glucose 123 mg/dL (65-110); Potassium 3.6 mmol/L (3.4-5.0); Sodium 138 mmol/L (137-145)
[2021-11-20 08:00] VITALS: BP 116/72; PULSE 75; RESP 16; TEMP 36.9; O2SAT 99
[2021-11-20] MEDS: SPIRONOLACTONE 12.5 MG TABLET PO (08:45)
[2021-11-20] MEDS: LIOTHYRONINE SODIUM 5 MCG TABLET PO (08:45)
[2021-11-20 08:46] VITALS: PULSE 83
[2021-11-20] MEDS: FUROSEMIDE INJ 40 MG/4 ML VIAL IV PUSH (08:46)
[2021-11-20] MEDS: PANTOPRAZOLE SODIUM IV 40 MG VIAL IV PUSH (08:46)
[2021-11-20] MEDS: METOPROLOL TARTRATE INJ 5 MG/5 ML VIAL IV PUSH (08:46)
--- NOTE | 2021-11-20 10:54 | PM.DS ---
DS: Admitting Diagnosis Discharge Date 11/20/2021 Admitting Diagnosis Ascites DS: Discharge Diagnosis Discharge Diagnosis (1) Abdominal ascites: Code(s): R18.8 - Other ascites Status: Acute Assessment and Plan: The patient had an abdominal CT today which was read as the following 1. Malignant stricture of the gastric antrum, peritoneal carcinomatosis, and infiltration of the omentum and small bowel mesentery, consistent with metastatic disease. 2. Large volume ascites. I did call Interventional Radiology to notify them that the patient will need a paracentesis for tomorrow. The patient is not on any blood thinners I will get some coagulation studies. The patient was scheduled for PET scan however explained that we do not do PET scans inpatient. She does have a history of having breast cancer in the past. She she may follow-up with outpatient PET scan at a later date. 11/18/2021 interval history: CT scan of the abdomen showed gastric outlet syndrome patient was seen by GI and had a EGD and showed an ulcerated mass extending from antrum to the angularis appears to impeging upon the pylorus but the pylorus able to be transferred with endoscope. multiple biopsies are taken, patient also has ascites and had a paracentesis 3650 ml clear yellow fluid was collected, most likely transudate labs are pending, also started the patient on Lasix and spironolactone to help diurese the patient will continue to monitor and further recommendation to follow. 11/19/2021 interval history: CT scan of the abdomen showed gastric outlet syndrome patient was seen by GI and had a EGD and showed an ulcerated mass extending from antrum to the angularis appears to impeging upon the pylorus but the pylorus able to be transferred with endoscope. multiple biopsies are taken, patient also has ascites and had a paracentesis 3650 ml clear yellow fluid was collected, most likely transudate labs are pending, also started the patient on Lasix and spironolactone to help diurese, patient stats she is urinating more and ascites is improving, patient with ulcerated mass will be seen by Dr. Armstrong, Oncologist and further recommendation to follow, will continue to monitor and further recommendation to follow. (2) Gastric outlet obstruction: Code(s): K31.1 - Adult hypertrophic pyloric stenosis Status: Acute Assessment and Plan: GI has been consulted. Will continue with IV fluids and pain medication. She is NPO at this time. Continue with pain management and IV fluids (3) Hypothyroidism: Code(s): E03.9 - Hypothyroidism, unspecified Status: Chronic Assessment and Plan: Continue with home medications. Check thyroid level (4) Glaucoma: Code(s): H40.9 - Unspecified glaucoma Status: Chronic Assessment and Plan: Continue with eyedrops. (5) Frequent PVCs: Code(s): I49.3 - Ventricular premature depolarization Status: Chronic Assessment and Plan: The patient has been on metoprolol. I will do labetalol instead. (6) GERD with esophagitis: Code(s): K21.00 - Gastro-esophageal reflux disease with esophagitis, without bleeding Status: Chronic Assessment and Plan: Continue with pantoprazole (7) Cataracts, bilateral: Code(s): H26.9 - Unspecified cataract Status: Acute Assessment and Plan: Not yet extracted. DS: Summary Hospital Course Reason for hospitalization: this is a 61-year-old female patient who recently had an EGD and was found to have nausea vomiting diarrhea in acid reflux since . She has been progressively getting worse. The patient also found that she was COVID positive week after . Patient stated that her abdomen just kept getting bigger but she was losing weight. She said she lost her taste and smell during COVID. She was eating less but her abdomen was getting bigger. The patient is a nondrinker. The patient
[2021-11-22 12:51] LABS: Amylase Peritoneal Fluid 15 U/L
[2021-11-23 05:35] LABS: Glucose Peritoneal Fluid 81 mg/dL; LDH Peritoneal Fluid 408 U/L (<63); Total Protein Peritoneal Fluid 4.9 g/dL
== END 2021-11-20 13:36 | disposition home or self-care (01) | DRG 375 ==
PROVIDERS: Internal Medicine Gastroenterology; Nurse Practitioner; Admitting Provider Family Medicine; PCP Family Medicine; Visit Provider Family Medicine
PROC: 0DJ08ZZ Inspection of Upper Intestinal Tract, Via Natural or Artificial Opening Endoscopic (ICD-10-PCS; CPT 43235; principal; 2021-11-18 13:00)
DX: C26.9 Malignant neoplasm of ill-defined sites within the digestive system (principal); K31.1 Adult hypertrophic pyloric stenosis; R18.8 Other ascites; K21.00 Gastro-esophageal reflux disease with esophagitis, without bleeding; E86.0 Dehydration; R13.10 Dysphagia, unspecified; K64.9 Unspecified hemorrhoids; E03.9 Hypothyroidism, unspecified; H26.9 Unspecified cataract; H40.9 Unspecified glaucoma; I49.3 Ventricular premature depolarization; Z90.710 Acquired absence of both cervix and uterus; Z85.3 Personal history of malignant neoplasm of breast; Z28.21 Immunization not carried out because of patient refusal; Z86.16 Personal history of COVID-19
CPT/HCPCS: 36415; 49083; 74150; 74240; 80048; 80053; 81001; 82040; 82042; 82150; 82945; 83605; 83615; 83735; 84157; 85025; 85027; 85380; 85610; 86140; 87040; 87070; 87075; 87205; 88104; 88108; 88305; 88313; 88342; 89051; 93005; 93970; 96374; 96375; A9270; C9113; G0378; G0379; J1940; J2270; J2405; J2704; J7042; J7120

== ENCOUNTER 2021-11-22 13:28 | Outpatient (CLI) | payer OTHER, SELFPAY ==
[2021-11-22 20:00] LABS: Alanine Aminotransferase 15 U/L (4-35); Albumin Level 3.7 g/dL (3.5-5.1); Alkaline Phosphatase 82 U/L (38-126); Anion Gap 9 mmol/L (8-16); Aspartate Amino Transferase 26 U/L (14-36); Bilirubin,Total 0.6 mg/dL (0.2-1.3); Blood Urea Nitrogen 14 mg/dL (7-17); Calcium 9.6 mg/dL (8.4-10.2); Carbon Dioxide 28 mmol/L (22-30); Chloride 100 mmol/L (98-107); Estimated Glomerular Filt Rate > 60; Glucose 110 mg/dL (65-110); Magnesium 1.9 mg/dL (1.6-2.3); Potassium 3.9 mmol/L (3.4-5.0); Sodium 137 mmol/L (137-145)
[2021-11-22 20:06] LABS: Hematocrit 40.2 % (37.0-47.0); Hemoglobin 13.3 g/dL (12.0-15.0); Mean Corpuscular HGB Conc 33.1 g/dl (32-36); Mean Corpuscular Hemoglobin 29.4 pg (26-34); Mean Corpuscular Volume 88.7 fl (80-100); Mean Platelet Volume 9.9 fl (7.4-10.4); Platelet Count Result 438 k/mm3 (150-375); Red Blood Count 4.53 M/mm3 (4.2-5.4); Red Cell Distribution Width 12.5 % (11.5-14.5); White Blood Count 7.4 K/mm3 (4.5-10.0)
== END 2021-11-22 13:29 | disposition home or self-care (01) ==
PROVIDERS: PCP Family Medicine; Visit Provider Family Medicine
DX: K31.89 Other diseases of stomach and duodenum (principal)
CPT/HCPCS: 36415; 80053; 83735; 85027

== ENCOUNTER 2021-11-25 09:02 | Outpatient (CLI) | payer OTHER, SELFPAY ==
--- NOTE | ~2021-11-25 | PE_ITS ---
EXAMINATION: PET skull to mid thigh DATE: 11/25/2021 11:00 INDICATION: Ligament neoplasm of unspecified site TECHNIQUE: Blood glucose level was 95 mg/dL. 9.77 mCi of 18-fluorodeoxyglucose (18-FDG) was administe red i.v. Low dose computed tomography (CT) images were acquired from the base of the brain to the pro ximal thighs for attenuation correction and anatomic localization. Positron emission tomography (PET) images were acquired in the same distribution beginning 56 minutes after injection. Images including fused PET/CT images were reconstructed in axial, coronal, and sagittal planes. Automated exposure co ntrol technique was employed. The dose-length product was 966.42mGy-cm. COMPARISON: CT studies dated 11/17/2021 and 01/13/2021 FINDINGS: Head/neck: There is symmetric increased activity in the oral cavity, thyroid gland laryngeal muscles and ocular muscles without CT correlate, likely physiologic. No pathologically enlarged cervical lymphadenopathy or suspicious foci of increased FDG uptake in the visualized head or neck. Chest: Lungs are clear with no suspicious pulmonary nodules, pneumonia, pulmonary edema or pleural effusion. Heart size is normal. No pericardial effusion. Thoracic aorta is normal in caliber. No pathologicall y enlarged or FDG avid thoracic lymphadenopathy. Abdomen/pelvis/proximal thighs: Physiologic renal accumulation and excretion of FDG activity in the kidneys, bladder and along portio ns of ureters. 2 cm cyst at the upper pole of the left kidney. Bilateral nonobstructing nephrolithias is. Normal degree and heterogenous pattern of increased uptake throughout the liver without radiologi c correlate or dominant FDG avid lesion. The gallbladder, pancreas, spleen and bilateral adrenal glan ds are normal. Couple chronic low-attenuation hepatic cysts without associated FDG uptake. Residual o ral contrast material layering in the dependent fundus of the stomach. Additional small amount of ora l contrast material seen scattered throughout the largely decompressed bowels including within multip le colonic diverticula. There is a poorly defined mass along the lesser curvature of the stomach at t he gastric antrum, likely extending into the proximal duodenum. There is relatively low associated FD G uptake with maximal SUV of 3.0 which remain slightly lower than the activity in the liver. Mild upt manasa scattered throughout the bowels and mesentery which could represent either physiologic uptake in the bowel or activity related to peritoneal disease. There is extensive mesenteric edema. Bladder is normal. The uterus is not identified and has likely been surgically resected. Moderate amount of a scites scattered throughout the abdomen and pelvis. No other abnormal foci of increased FDG uptake or pathologically enlarged lymphadenopathy in the abdomen, pelvis or proximal thighs. Musculoskeletal: Small bone island at the left femoral head. No suspicious lytic, blastic or FDG avid bone lesions. IMPRESSION: 1. Poorly defined infiltrative mass is again prominent wall thickening at the lesser curvature of the stomach at the antrum and extending into the proximal duodenum suspicious for primary gastric cancer . There is relatively low FDG uptake associated with the mass which is less than the degree of uptake in the liver which significantly decreases sensitivity for identification of metastatic disease. 2. Mild uptake scattered throughout the bowels which could represent normal bowel activity, low-level uptake associated with peritoneal metastatic disease which is suggested on CT imaging or most likely a combination thereof. 3. Moderate amount of likely malignant ascites. 4. No evident metastatic disease in the head, neck or chest. Reviewed, dictated and finalized at location A. Electronically signed by Ebony Wei
[2021-11-25 09:38] LABS: Glucose Point of Care 95 mg/dl (65-105)
== END 2021-11-25 09:03 | disposition home or self-care (01) ==
LOC: ANHIMG 09:12
PROVIDERS: PCP Family Medicine; Visit Provider Internal Medicine Hematology & Oncology
DX: C50.919 Malignant neoplasm of unspecified site of unspecified female breast (principal); C16.3 Malignant neoplasm of pyloric antrum; K31.89 Other diseases of stomach and duodenum; R18.8 Other ascites
CPT/HCPCS: 78815; A9552

== ENCOUNTER 2021-12-07 01:45 | Emergency (ER) | payer OTHER, SELFPAY ==
--- NOTE | ~2021-12-07 | CT_ITS ---
EXAMINATION: CT abdomen pelvis wo con DATE: 12/07/2021 02:27 INDICATION: Abdominal pain. Nausea, vomiting, and diarrhea. TECHNIQUE: Computed tomography (CT) of the abdomen and pelvis was performed without intravenous contr ast. Automated exposure control and iterative reconstruction technique were employed. The dose-length product was 876.77 mGy-cm. COMPARISON: CT abdomen 11/17/2021 FINDINGS: The visualized portions of the lung bases demonstrate minimal atelectasis. No pleural effus ion. The heart size is normal. No pericardial effusion. There is a small sliding hiatal hernia. There are cysts in the liver measuring up to 11 mm. The spleen, gallbladder, pancreas, and adrenal glands are normal. There are 5 stones in right kidney measuring up to 4 mm. There is a 2.2 cm cyst in left k idney. There is a 3 mm stone in left kidney. There is wall thickening of the gastric antrum, consiste nt with malignancy. There is a stent across the gastric antrum. There is diverticulosis of the colon without evidence of diverticulitis. There are no dilated loops of bowel. The appendix is normal. Ther e is a large volume of ascites. There is fat stranding of the greater omentum, likely peritoneal carc inomatosis. There are no pathologically enlarged lymph nodes. There is mild lumbar spondylosis. IMPRESSION: 1. Wall thickening of the gastric antrum with stent, consistent with primary malignancy. 2. Peritoneal carcinomatosis and large volume of ascites. Reviewed, dictated and finalized at location A. S SUPERVISOR IMPRESSION: 1. Wall thickening of the gastric antrum with stent, consistent with primary ma lignancy. 2. Peritoneal carcinomatosis and large volume of ascites.
[2021-12-07 02:00] VITALS: BP 129/90; PULSE 104; RESP 20; TEMP 36.8; O2SAT 98
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
[2021-12-07 02:22] LABS: Basophils Percent Auto 0.4 % (0.2-1.2); Eosinophils Percent Auto 0.6 % (0-4.4); Hematocrit 41.6 % (37.0-47.0); Hemoglobin 13.2 g/dL (12.0-15.0); Immature Granulocyte Absolute 0.06 K/mm3 (0.00-0.031); Immature Granulocyte Percent A 0.9 % (0-0.5); Lymphocytes Absolute Auto 1.03 K/mm3 (0.9-3.2); Lymphocytes Percent Auto 14.6 % (18.3-44.2); Mean Corpuscular HGB Conc 31.7 g/dl (32-36); Mean Corpuscular Hemoglobin 28.7 pg (26-34); Mean Corpuscular Volume 90.4 fl (80-100); Mean Platelet Volume 9.7 fl (7.4-10.4); Monocytes Absolute Auto 0.9 K/mm3 (0.1-0.6); Monocytes Percent Auto 12.3 % (2.6-8.5); Neutrophils Percent Auto 71.2 % (45.5-73.1); Platelet Count Result 319 k/mm3 (150-375); Red Cell Distribution Width 13.1 % (11.5-14.5); White Blood Count 7.1 K/mm3 (4.5-10.0)
[2021-12-07] MEDS: LACTATED RINGERS 1,000 ML 999 ML IV CONT (02:30)
[2021-12-07 02:32] LABS: Partial Thromboplastin Time 26.7 SECONDS (22.3-36.8)
[2021-12-07 02:33] LABS: Alanine Aminotransferase 26 U/L (4-35); Albumin Level 3.4 g/dL (3.5-5.1); Alkaline Phosphatase 82 U/L (38-126); Anion Gap 6 mmol/L (8-16); Aspartate Amino Transferase 43 U/L (14-36); Bilirubin,Total 0.7 mg/dL (0.2-1.3); Blood Urea Nitrogen 16 mg/dL (7-17); Calcium 8.7 mg/dL (8.4-10.2); Carbon Dioxide 29 mmol/L (22-30); Chloride 95 mmol/L (98-107); Estimated Glomerular Filt Rate > 60; Glucose 127 mg/dL (65-110); Lipase 111 U/L (23-300); Potassium 4.1 mmol/L (3.4-5.0); Sodium 130 mmol/L (137-145)
[2021-12-07] MEDS: HYDROmorphone HCL INJ (*CRX) 1 MG/ML SYR 0.5 MG IV PUSH (02:35)
[2021-12-07 02:38] LABS: INR 1.1; Prothrombin Time 13.6 Seconds (11.1-14.7)
[2021-12-07] MEDS: PROMETHAZINE HCL 25 MG/ML AMPUL 12.5 MG IV PUSH (02:46)
[2021-12-07 02:49] VITALS: BP 139/95; PULSE 97; RESP 14; O2SAT 96
[2021-12-07 02:57] LABS: Lactic Acid Reflex 0.9 mmol/L (0.7-2.1)
[2021-12-07 04:03] VITALS: BP 145/92; PULSE 80; RESP 16; O2SAT 99
[2021-12-07 05:30] VITALS: BP 141/75; PULSE 90; RESP 16; O2SAT 99
[2021-12-07] MEDS: ONDANSETRON INJ 4 MG/2 ML VIAL IV PUSH (06:19)
--- NOTE | 2021-12-07 06:20 | PC.NURSE ---
Patient started complaining nausea was returning and would not be able to fill her Rx until later when the pharmacy opens. BRANDON Chu made aware. Zofran 4mg IVP administered. Will reassess patient before discharging.
[2021-12-07 06:32] VITALS: BP 138/83; PULSE 88; RESP 14; O2SAT 99
== END 2021-12-07 06:37 | disposition home or self-care (01) ==
PROVIDERS: Emergency Provider Emergency Medicine; PCP Family Medicine
DX: R10.84 Generalized abdominal pain (principal); R11.2 Nausea with vomiting, unspecified; C16.9 Malignant neoplasm of stomach, unspecified; C78.6 Secondary malignant neoplasm of retroperitoneum and peritoneum; K21.00 Gastro-esophageal reflux disease with esophagitis, without bleeding; E03.9 Hypothyroidism, unspecified; K58.9 Irritable bowel syndrome, unspecified; M17.0 Bilateral primary osteoarthritis of knee; M81.0 Age-related osteoporosis without current pathological fracture; H40.9 Unspecified glaucoma; H26.9 Unspecified cataract; Z85.3 Personal history of malignant neoplasm of breast; Z92.3 Personal history of irradiation
CPT/HCPCS: 36415; 74176; 80053; 83605; 83690; 85025; 85610; 85730; 96361; 96374; 96375; 99284; J1170; J2405; J2550; J7120

== ENCOUNTER 2021-12-10 11:06 | Inpatient (IN) | payer OTHER, SELFPAY ==
--- NOTE | ~2021-12-10 | CT_ITS ---
EXAMINATION: CT abdomen pelvis wo con DATE: 12/11/2021 23:34 INDICATION: Left flank pain. Dysuria. TECHNIQUE: Computed tomography (CT) of the abdomen and pelvis was performed without intravenous contr ast. Automated exposure control and iterative reconstruction technique were employed. The dose-length product was 321.08 mGy-cm. COMPARISON: CT abdomen and pelvis 12/07/2021 FINDINGS: The visualized portions of the lung bases demonstrate minimal atelectasis. No pleural effus ion. The heart size is normal. No pericardial effusion. There is a 15 mm cyst in the liver. The gallb ladder, spleen, pancreas, and adrenal glands are normal. There are 3 stones in right kidney measuring up to 3 mm. There is a 3 mm stone in left kidney. There is a 1.9 cm cyst in left kidney. There are s cattered diverticula in the colon. The appendix is not visualized. There is wall thickening of the ga stric antrum with stent. There is a large volume of ascites. There is fat stranding and nodularity of the greater omentum, consistent with peritoneal carcinomatosis. There are no pathologically enlarged lymph nodes. There is mild lumbar spondylosis. IMPRESSION: 1. Wall thickening of the gastric antrum with stent, consistent with primary malignancy. 2. Peritoneal carcinomatosis and large volume of ascites. Reviewed, dictated and finalized at location A. IMPRESSION: 1. Wall thickening of the gastric antrum with stent, consistent with primary ma lignancy. 2. Peritoneal carcinomatosis and large volume of ascites.
--- NOTE | ~2021-12-10 | US_ITS ---
EXAMINATION: US paracentesis abd w/image DATE: 12/10/2021 18:24 INDICATION: Ascites. TECHNIQUE: The procedure and its risks and benefits were discussed with the patient. Potential risks discussed included bleeding and infection. The skin was prepped and draped in sterile fashion. 1% lid ocaine was used for local anesthesia. Under ultrasound guidance, a 5 Fr catheter with trochar was adv anced into the ascites in the left lower quadrant. Fluid was aspirated into vacuum bottles. The andrés ter was removed, and a dressing was applied. There were no immediate complications. FINDINGS: Ultrasound images demonstrate ascites and the catheter within the fluid. IMPRESSION: 1. Successful ultrasound-guided paracentesis yielding 3800 mL of cloudy brownish fluid. Reviewed, dictated and finalized at location A. RVISOR INTERMEDIATES IMPRESSION: 1. Successful ultrasound-guided paracentesis yielding 3800 mL of cloudy browni sh fluid.
--- NOTE | ~2021-12-10 | US_ITS ---
EXAMINATION: US paracentesis abd w/image DATE: 12/13/2021 10:48 INDICATION: Fever. Malignant ascites. TECHNIQUE: The procedure and its risks and benefits were discussed with the patient. Potential risks discussed included bleeding and infection. The skin was prepped and draped in sterile fashion. 1% lid ocaine was used for local anesthesia. Under ultrasound guidance, a 5 Fr catheter with trochar was adv anced into the ascites in the left lower quadrant. Fluid was aspirated into vacuum bottles. The andrés ter was removed, and a dressing was applied. There were no immediate complications. FINDINGS: Ultrasound images demonstrate ascites and the catheter within the fluid. IMPRESSION: 1. Successful ultrasound-guided paracentesis yielding 2800 mL of clear dark yellow fluid. Reviewed, dictated and finalized at location A. IMPRESSION: 1. Successful ultrasound-guided paracentesis yielding 2800 mL of clear dark ye llow fluid.
[2021-12-10 11:10] VITALS: BP 118/92; PULSE 110; RESP 19; TEMP 36.8; O2SAT 99
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
[2021-12-10 12:38] LABS: Basophils Percent Auto 0.2 % (0.2-1.2); Eosinophils Percent Auto 0.1 % (0-4.4); Hematocrit 38.8 % (37.0-47.0); Hemoglobin 12.6 g/dL (12.0-15.0); Immature Granulocyte Absolute 0.06 K/mm3 (0.00-0.031); Immature Granulocyte Percent A 0.5 % (0-0.5); Lymphocytes Absolute Auto 0.82 K/mm3 (0.9-3.2); Lymphocytes Percent Auto 7.3 % (18.3-44.2); Mean Corpuscular HGB Conc 32.5 g/dl (32-36); Mean Corpuscular Hemoglobin 28.7 pg (26-34); Mean Corpuscular Volume 88.4 fl (80-100); Mean Platelet Volume 9.5 fl (7.4-10.4); Monocytes Absolute Auto 0.7 K/mm3 (0.1-0.6); Monocytes Percent Auto 6.2 % (2.6-8.5); Neutrophils Absolute Auto 9.6 K/mm3 (1.3-6.7); Neutrophils Percent Auto 85.7 % (45.5-73.1); Platelet Count Result 400 k/mm3 (150-375); Red Blood Count 4.39 M/mm3 (4.2-5.4); Red Cell Distribution Width 13.1 % (11.5-14.5); White Blood Count 11.2 K/mm3 (4.5-10.0)
[2021-12-10] MEDS: SODIUM CHLORIDE 0.9% IV 1,000 ML 250 ML IV CONT (12:45)
[2021-12-10] MEDS: MORPHINE SULFATE (*CRX) 4 MG/ML INJ IV PUSH (12:45)
[2021-12-10] MEDS: ONDANSETRON INJ 4 MG/2 ML VIAL IV PUSH (12:45)
[2021-12-10 12:51] LABS: Alanine Aminotransferase 51 U/L (4-35); Albumin Level 3.7 g/dL (3.5-5.1); Alkaline Phosphatase 93 U/L (38-126); Anion Gap 11 mmol/L (8-16); Aspartate Amino Transferase 62 U/L (14-36); Bilirubin,Total 0.9 mg/dL (0.2-1.3); Blood Urea Nitrogen 23 mg/dL (7-17); Calcium 8.6 mg/dL (8.4-10.2); Carbon Dioxide 29 mmol/L (22-30); Chloride 93 mmol/L (98-107); Estimated Glomerular Filt Rate > 60; Glucose 130 mg/dL (65-110); Lipase 191 U/L (23-300); Potassium 4.5 mmol/L (3.4-5.0); Sodium 133 mmol/L (137-145)
[2021-12-10 13:36] LABS: Add Urine Microscopic? YES; Appearance Urine Cloudy (Clear); Bacteria Urine Trace /hpf; Bilirubin Urine Negative (Negative); Blood Urine 1+ (Negative); Color Urine Amber (Yellow); Glucose Urine UA Negative (Negative); Ketones Urine Trace mg/dL (Negative); Leukocyte Esterase Ur 3+ LEU/UL (Negative); Mucus Urine Few /lpf; Nitrate Urine Negative (Negative); Protein Urine 1+ mg/dL (Negative); Specific Grav Ur 1.024 (1.001-1.035); Squamous Epithelial Cell Urine Many /hpf (Few); WBC Urine >75 /hpf
[2021-12-10] MEDS: diphenhydrAMINE HCl INJ 50 MG/ML VIAL 12.5 MG IV PUSH (13:55)
[2021-12-10] MEDS: METOCLOPRAMIDE HCL INJ 10 MG/2 ML VIAL IV PUSH (13:55)
[2021-12-10 15:30] VITALS: BMI 31.6
[2021-12-10 15:33] VITALS: BP 142/97; PULSE 103; RESP 18; TEMP 36.9; O2SAT 100
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
[2021-12-10 17:21] LABS: INR 1.1
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
[2021-12-10] MEDS: SODIUM CHLORIDE 0.9% IV 1,000 ML 100 ML IV CONT (17:43)
[2021-12-10 17:52] LABS: Hematocrit 39.7 % (37.0-47.0); Hemoglobin 12.4 g/dL (12.0-15.0)
[2021-12-10] MEDS: ONDANSETRON INJ 4 MG/2 ML VIAL 8 MG IV PUSH (18:20)
[2021-12-10] MEDS: LATANOPROST 0.005% OP SOLN 2.5 ML BTL 1 DROP EACH EYE (21:54)
[2021-12-10 22:28] VITALS: BP 124/105; PULSE 110; RESP 18; TEMP 36.7; O2SAT 100
[2021-12-11] VITALS (8 sets, daily range): BP systolic 110–137; BP diastolic 67–86; PULSE 80–92; RESP 16–18; TEMP 36.3–38; O2SAT 95–99
[2021-12-11 01:16] LABS: Hematocrit 35.2 % (37.0-47.0); Hemoglobin 11.2 g/dL (12.0-15.0)
[2021-12-11] MEDS: ONDANSETRON INJ 4 MG/2 ML VIAL 8 MG IV PUSH ×3 (01:56→17:07)
[2021-12-11] MEDS: SODIUM CHLORIDE 0.9% IV 1,000 ML 100 ML IV CONT (04:20)
[2021-12-11 05:35] LABS: Basophils Percent Auto 0.1 % (0.2-1.2); Eosinophils Percent Auto 0.4 % (0-4.4); Hematocrit 35.9 % (37.0-47.0); Hemoglobin 11.4 g/dL (12.0-15.0); Immature Granulocyte Absolute 0.03 K/mm3 (0.00-0.031); Immature Granulocyte Percent A 0.4 % (0-0.5); Lymphocytes Absolute Auto 0.99 K/mm3 (0.9-3.2); Lymphocytes Percent Auto 12.4 % (18.3-44.2); Mean Corpuscular HGB Conc 31.8 g/dl (32-36); Mean Corpuscular Hemoglobin 28.2 pg (26-34); Mean Corpuscular Volume 88.9 fl (80-100); Mean Platelet Volume 9.3 fl (7.4-10.4); Monocytes Absolute Auto 0.5 K/mm3 (0.1-0.6); Monocytes Percent Auto 6.6 % (2.6-8.5); Neutrophils Absolute Auto 6.4 K/mm3 (1.3-6.7); Neutrophils Percent Auto 80.1 % (45.5-73.1); Platelet Count Result 325 k/mm3 (150-375); Red Blood Count 4.04 M/mm3 (4.2-5.4); Red Cell Distribution Width 12.9 % (11.5-14.5)
[2021-12-11 05:50] LABS: Alanine Aminotransferase 40 U/L (4-35); Albumin Level 2.9 g/dL (3.5-5.1); Alkaline Phosphatase 76 U/L (38-126); Anion Gap 6 mmol/L (8-16); Aspartate Amino Transferase 45 U/L (14-36); Bilirubin,Total 0.3 mg/dL (0.2-1.3); Blood Urea Nitrogen 18 mg/dL (7-17); Calcium 7.8 mg/dL (8.4-10.2); Carbon Dioxide 31 mmol/L (22-30); Chloride 98 mmol/L (98-107); Estimated CRCL calculation 60 ml/min; Estimated Glomerular Filt Rate 57; Glucose 102 mg/dL (65-110); Potassium 3.6 mmol/L (3.4-5.0); Sodium 135 mmol/L (137-145)
[2021-12-11] MEDS: LIOTHYRONINE SODIUM 5 MCG TABLET PO (06:12)
[2021-12-11] MEDS: LEVOTHYROXINE SODIUM 50 MCG TABLET PO (06:12)
[2021-12-11] MEDS: ACETAMINOPHEN 325 MG TABLET 650 MG PO ×2 (06:55→20:17)
[2021-12-11] MEDS: PANTOPRAZOLE 40 MG TABLET PO (08:23)
[2021-12-11] MEDS: METOPROLOL TARTRATE 25 MG TABLET PO (08:23)
--- NOTE | 2021-12-11 10:26 | PM.IMPN ---
Progress Note: A&P Assessment and Plan (1) Generalized weakness: Code(s): R53.1 - Weakness Status: Acute Assessment and Plan: Multifactorial from nausea, vomiting, diarrhea, and stage IV stomach cancer. Improved with hydration and paracentesis and control of nausea. December 11. PT and OT to evaluate and treat 12/11 advance diet to clear liquid with Ensure Clear t.i.d. (2) UTI (urinary tract infection): Qualifiers: Hematuria presence: without hematuria Urinary tract infection type: acute cystitis Qualified Code(s): N30.00 - Acute cystitis without hematuria Code(s): N39.0 - Urinary tract infection, site not specified Status: Acute Assessment and Plan: Day 2 ceftriaxone. Culture pending. (3) Malignant neoplasm of pyloric antrum: Code(s): C16.3 - Malignant neoplasm of pyloric antrum Status: Acute Assessment and Plan: Oncology following. Symptom management pending initiation of radiation and chemotherapy. (4) Abdominal ascites: Qualifiers: Ascites type: malignant Qualified Code(s): R18.0 - Malignant ascites Code(s): R18.8 - Other ascites Status: Acute Assessment and Plan: December 10 ultrasound-guided paracentesis fluid consistent with exudate and not suggestive of SBP. (5) Hematemesis: Code(s): K92.0 - Hematemesis Status: Acute Assessment and Plan: Likely due to known gastric cancer. 12/10 hemoglobin 12.6, 12/11 hemoglobin 11.4 after phlebotomies and IV hydration Continue to monitor Subjective Date/time seen: 12/11/21 10:26 Interval history: 61-year-old female with stage IV gastric adenocarcinoma was admitted December 10 with nausea vomiting with some blood in the vomitus and diarrhea and abdominal discomfort. Underwent thoracentesis and started scheduled Zofran and IV hydration on December 10. December 11 visit. Feeling much better. Would like to try clear liquids. No further diarrhea nausea vomiting. Abdomen less distended and more comfortable. Denied chest pain or shortness of breath. Does admit to generalized weakness. Urine was pink today but was catheterized December 10 for urine specimen. Review of Systems Review of Systems: All systems reviewed & are unremarkable except as noted in HPI and below Exam Narrative: General. Alert. No acute distress. HEENT. Sclerae anicteric. Mucous membranes moist. Neck no JVD. Chest clear to auscultation. Normal effort. Heart. Normal S1 and S2. Rate regular. Abdomen. Protuberant. Firm and irregular nodularity most prominent in the left upper quadrant. Nontender. Extremities without edema cyanosis or clubbing. Musculoskeletal tone and strength symmetric Neurologic cranial nerves 3-12 symmetric to visual inspection. Psychiatric. Alert and oriented to person place time and situation. Affect appropriate. Mood euthymic. Objective Data Vital Signs Vital Signs: Vital Signs - 24 hr 12/10/21 11:10 12/10/21 15:33 12/10/21 22:28 Temperature 98.3 F 98.4 F 98.0 F Pulse Rate 110 H 103 H 110 H Respiratory Rate 19 18 18 Blood Pressure 118/92 H 142/97 H 124/105 H Pulse Oximetry 99 100 100 12/11/21 06:38 12/11/21 07:55 12/11/21 08:00 Temperature 97.9 F Pulse Rate 91 Respiratory Rate 18 Blood Pressure 137/86 Pulse Oximetry 98 95 95 12/11/21 08:23 Temperature Pulse Rate 92 Respiratory Rate Blood Pressure Pulse Oximetry Intake/Output Intake/Output: Intake & Output 12/08/21 12/09/21 12/10/21 12/11/21 23:59 23:59 23:59 23:59 Intake Total 1000 Output Total 3800 600 Balance -3800 400 Meds/Results Medications: Active Medications Generic Name Dose Route Start Last Admin Trade Name Freq PRN Reason Stop Dose Admin Acetaminophen 650 mg 12/11/21 06:25 12/11/21 06:55 Acetaminophen 325 Mg Tablet PO 650 mg Q4H PRN Administration Headache Ceftriaxone Sodium/Dextrose 1 gm in 50 mls @ 100 mls/hr
[2021-12-11] MEDS: KCL 20 MEQ/0.45% NS 1,000 ML 90 ML IV CONT ×2 (10:51→22:34)
[2021-12-11] MEDS: ONDANSETRON INJ 4 MG/2 ML VIAL IV PUSH (20:17)
--- NOTE | 2021-12-11 21:14 | PC.NURSE ---
Pt awoke with confusion, bit the plastic portion of thermometer cover; confusion resolved within seconds. Pt also complained of low back pain that radiated to her right flank and abdomen, pt urinated and felt no relief. Pt exhibited fear and anxiety and is concerned about what this means for him. The p.m. hospitalist is informed and orders are placed.
[2021-12-11] MEDS: LATANOPROST 0.005% OP SOLN 2.5 ML BTL 1 DROP EACH EYE (22:33)
[2021-12-12] MEDS: ONDANSETRON INJ 4 MG/2 ML VIAL 8 MG IV PUSH ×3 (01:46→20:30)
--- NOTE | 2021-12-12 03:24 | PC.NURSE ---
Daylight Savings Time For Daylight Savings Time Ending in the Fall - Clocks are moved back. For Daylight Savings Time Beginning in the Spring - Clocks are moved ahead. For [facility], the time of change occurs at 0200 hrs. Time is taken from the horse buyer. This entry on the patient's chart recognizes the change in time reflected during documentation. Example: 2 entries for vital signs may be charted for 0200 hrs.
[2021-12-12 04:08] VITALS: BP 126/90; PULSE 92; RESP 16; TEMP 36.6; O2SAT 100
[2021-12-12 05:58] LABS: Hematocrit 34.9 % (37.0-47.0); Hemoglobin 11.2 g/dL (12.0-15.0); Mean Corpuscular HGB Conc 32.1 g/dl (32-36); Mean Corpuscular Hemoglobin 28.4 pg (26-34); Mean Corpuscular Volume 88.6 fl (80-100); Mean Platelet Volume 9.3 fl (7.4-10.4); Platelet Count Result 343 k/mm3 (150-375); Red Blood Count 3.94 M/mm3 (4.2-5.4); White Blood Count 9.1 K/mm3 (4.5-10.0)
[2021-12-12 06:16] LABS: Alanine Aminotransferase 37 U/L (4-35); Albumin Level 2.8 g/dL (3.5-5.1); Alkaline Phosphatase 78 U/L (38-126); Anion Gap 5 mmol/L (8-16); Aspartate Amino Transferase 40 U/L (14-36); Bilirubin,Total 0.3 mg/dL (0.2-1.3); Blood Urea Nitrogen 17 mg/dL (7-17); Calcium 7.7 mg/dL (8.4-10.2); Carbon Dioxide 28 mmol/L (22-30); Chloride 99 mmol/L (98-107); Estimated CRCL calculation 60 ml/min; Estimated Glomerular Filt Rate 57; Glucose 94 mg/dL (65-110); Magnesium 2.3 mg/dL (1.6-2.3); Phosphorus 3.9 mg/dL (2.5-4.5); Sodium 132 mmol/L (137-145)
[2021-12-12] MEDS: LIOTHYRONINE SODIUM 5 MCG TABLET PO (06:20)
[2021-12-12] MEDS: LEVOTHYROXINE SODIUM 50 MCG TABLET PO (06:20)
[2021-12-12 08:40] VITALS: PULSE 84
[2021-12-12] MEDS: PANTOPRAZOLE 40 MG TABLET PO (08:40)
[2021-12-12] MEDS: METOPROLOL TARTRATE 25 MG TABLET PO (08:40)
[2021-12-12] MEDS: KCL 20MEQ/0.9% SOD CHL 1,000 ML 100 ML IV CONT ×2 (08:44→20:31)
[2021-12-12 12:51] VITALS: BMI 31.6
[2021-12-12 14:00] VITALS: BP 121/79; PULSE 84; RESP 18; TEMP 37.4; O2SAT 100
--- NOTE | 2021-12-12 15:09 | PM.IMPN ---
Progress Note: A&P Assessment and Plan (1) Fever: Qualifiers: Fever type: unspecified Qualified Code(s): R50.9 - Fever, unspecified Code(s): R50.9 - Fever, unspecified Status: Acute Assessment and Plan: Only focal findings are intraabdominal. Consider repeat U/s guided paracentesis for gram stain and culture Less likely due to tumor or drug due to associated tachycardia (no temp-pulse dissociation) 12/12 Day 1 cefepime (2) Generalized weakness: Code(s): R53.1 - Weakness Status: Acute Assessment and Plan: Multifactorial from nausea, vomiting, diarrhea, and stage IV stomach cancer. Improved with hydration and paracentesis and control of nausea. December 11. PT and OT to evaluate and treat 12/11 advanced diet to clear liquid with Ensure Clear t.i.d., then to full liquids due to patient tolerance and preference (3) UTI (urinary tract infection): Qualifiers: Hematuria presence: without hematuria Urinary tract infection type: acute cystitis Qualified Code(s): N30.00 - Acute cystitis without hematuria Code(s): N39.0 - Urinary tract infection, site not specified Status: Acute Assessment and Plan: EXCLUDED WITH NEGATIVE CULTURE. RECEIVED CEFTRIAXONE 12/10 AND 12/11. (4) Malignant neoplasm of pyloric antrum: Code(s): C16.3 - Malignant neoplasm of pyloric antrum Status: Acute Assessment and Plan: Oncology following. Symptom management pending initiation of radiation and chemotherapy. 12/12 Added prn IV morphine for pain and prn promethazine for breakthrough nausea; resumed scheduled ondansetron. (5) Abdominal ascites: Qualifiers: Ascites type: malignant Qualified Code(s): R18.0 - Malignant ascites Code(s): R18.8 - Other ascites Status: Acute Assessment and Plan: December 10 ultrasound-guided paracentesis fluid consistent with exudate and not suggestive of SBP. 12/[address] A/P with antral stenosis and stent, tumor infiltration of small bowel and peritoneum, large volume ascites. (6) Hematemesis: Qualifiers: Nausea presence: with nausea Qualified Code(s): K92.0 - Hematemesis Code(s): K92.0 - Hematemesis Status: Acute Assessment and Plan: Likely due to known gastric cancer. 12/10 hemoglobin 12.6, 12/11 hemoglobin 11.4 after phlebotomies and IV hydration, 12/12 hgb 11.2 Continue to monitor Subjective Date/time seen: 12/12/21 15:09 Interval history: 61-year-old female with stage IV gastric adenocarcinoma was admitted December 10 with nausea vomiting with some blood in the vomitus and diarrhea and abdominal discomfort. Underwent thoracentesis and started scheduled Zofran and IV hydration on December 10. December 12 visit. Febrile last night. Abdominal pain after full liquids. Did not like the clear liquids. But did tolerate them. No vomiting or diarrhea. Epigastric to left upper quadrant pain is severe. Denied chest pain or shortness of breath. Does admit to generalized weakness. No further hematuria. Review of Systems Review of Systems: All systems reviewed & are unremarkable except as noted in HPI and below Exam Narrative: General. Alert. No acute distress. HEENT. Sclerae anicteric. Mucous membranes moist. Neck no JVD. Chest clear to auscultation. Normal effort. Heart. Normal S1 and S2. Rate regular. Abdomen. Protuberant. Firm and irregular nodularity most prominent in the left upper quadrant with tenderness to palpation but no rebound or guarding. Extremities without edema cyanosis or clubbing. Musculoskeletal tone and strength symmetric Neurologic cranial nerves 3-12 symmetric to visual inspection. Psychiatric. Alert and oriented to person place time and situation. Affect appropriate. Mood euthymic. Objective Data Vital Signs Vital Signs: Vital Signs - 24 hr 12/11/21 19:53 12/11/21 20:17 12/11/21 21:17 Temperature 100.4 F H 100.4 F H 9
--- NOTE | 2021-12-12 15:15 | PCOTNOTE ---
Canceling pt. orders. Per nurse and Physical therapy evaluation. Pt. is Independent in ADLs and transfers at this time. Re-order if pt. displays decline in function
[2021-12-12] MEDS: ONDANSETRON INJ 4 MG/2 ML VIAL IV PUSH (15:16)
[2021-12-12] MEDS: MORPHINE SULFATE (*CRX) 2 MG/ML INJ IV PUSH (15:28)
[2021-12-12] MEDS: PROMETHAZINE HCL 25 MG/ML AMPUL 12.5 MG IV PUSH (16:39)
[2021-12-12 19:10] VITALS: BP 119/82; PULSE 90; RESP 17; TEMP 37.3; O2SAT 100
[2021-12-12 20:00] VITALS: PULSE 90; RESP 17; O2SAT 100
[2021-12-12] MEDS: LATANOPROST 0.005% OP SOLN 2.5 ML BTL 1 DROP EACH EYE (20:30)
[2021-12-12 23:21] VITALS: O2SAT 98
[2021-12-13] MEDS: MORPHINE SULFATE (*CRX) 2 MG/ML INJ IV PUSH (00:16)
[2021-12-13 03:13] VITALS: BP 128/89; PULSE 95; RESP 16; TEMP 36.8; O2SAT 100
[2021-12-13] MEDS: LIOTHYRONINE SODIUM 5 MCG TABLET PO (05:46)
[2021-12-13] MEDS: KCL 20MEQ/0.9% SOD CHL 1,000 ML 100 ML IV CONT (05:46)
[2021-12-13] MEDS: ONDANSETRON INJ 4 MG/2 ML VIAL 8 MG IV PUSH ×3 (05:46→21:13)
[2021-12-13] MEDS: LEVOTHYROXINE SODIUM 50 MCG TABLET PO (05:47)
[2021-12-13 06:06] LABS: Hematocrit 36.6 % (37.0-47.0); Hemoglobin 11.6 g/dL (12.0-15.0); Mean Corpuscular HGB Conc 31.7 g/dl (32-36); Mean Corpuscular Hemoglobin 28.3 pg (26-34); Mean Corpuscular Volume 89.3 fl (80-100); Mean Platelet Volume 9.4 fl (7.4-10.4); Platelet Count Result 386 k/mm3 (150-375); Red Cell Distribution Width 13.2 % (11.5-14.5); White Blood Count 9.8 K/mm3 (4.5-10.0)
[2021-12-13 06:14] LABS: INR 1.1; Prothrombin Time 13.5 Seconds (11.1-14.7)
[2021-12-13 06:15] LABS: Partial Thromboplastin Time 30.8 SECONDS (22.3-36.8)
[2021-12-13 06:17] LABS: Alanine Aminotransferase 32 U/L (4-35); Albumin Level 2.9 g/dL (3.5-5.1); Alkaline Phosphatase 97 U/L (38-126); Anion Gap 8 mmol/L (8-16); Aspartate Amino Transferase 32 U/L (14-36); Bilirubin,Total 0.3 mg/dL (0.2-1.3); Blood Urea Nitrogen 16 mg/dL (7-17); Calcium 7.9 mg/dL (8.4-10.2); Carbon Dioxide 20 mmol/L (22-30); Chloride 105 mmol/L (98-107); Estimated CRCL calculation 68 ml/min; Estimated Glomerular Filt Rate > 60; Glucose 105 mg/dL (65-110); Magnesium 2.3 mg/dL (1.6-2.3); Potassium 4.6 mmol/L (3.4-5.0); Sodium 133 mmol/L (137-145)
[2021-12-13 08:00] VITALS: PULSE 95; RESP 16; O2SAT 100
[2021-12-13] MEDS: PANTOPRAZOLE 40 MG TABLET PO (09:46)
[2021-12-13] MEDS: METOPROLOL TARTRATE 25 MG TABLET PO (09:46)
[2021-12-13] MEDS: SODIUM CHLORIDE 0.9% IV 1,000 ML 100 ML IV CONT ×2 (09:53→21:12)
[2021-12-13 10:08] LABS: Lactate Dehydrogenase 434 U/L (313-618)
--- NOTE | 2021-12-13 11:56 | PM.IMPN ---
Progress Note: A&P Assessment and Plan (1) Fever: Qualifiers: Fever type: unspecified Qualified Code(s): R50.9 - Fever, unspecified Code(s): R50.9 - Fever, unspecified Status: Acute Assessment and Plan: -Overnight 12/11-11/14 -Only focal findings are intraabdominal -repeat U/s guided paracentesis 12/13 for gram stain and culture -Less likely due to tumor or drug due to associated tachycardia (no temp-pulse dissociation) -12/12 Day 1 cefepime, no fever since initiation of abx. WBC 9.8. (2) Generalized weakness: Code(s): R53.1 - Weakness Status: Acute Assessment and Plan: -Multifactorial from nausea, vomiting, diarrhea, and stage IV stomach cancer. -Improved with hydration and paracentesis and control of nausea. -PT and OT to evaluate and treat (3) UTI (urinary tract infection): Qualifiers: Hematuria presence: without hematuria Urinary tract infection type: acute cystitis Qualified Code(s): N30.00 - Acute cystitis without hematuria Code(s): N39.0 - Urinary tract infection, site not specified Status: Acute Assessment and Plan: -EXCLUDED WITH NEGATIVE CULTURE. -RECEIVED CEFTRIAXONE 12/10 AND 12/11. (4) Malignant neoplasm of pyloric antrum: Code(s): C16.3 - Malignant neoplasm of pyloric antrum Status: Acute Assessment and Plan: -Oncology following. -Symptom management pending initiation of radiation and chemotherapy. -12/12 Added prn IV morphine for pain and prn promethazine for breakthrough nausea; resumed scheduled ondansetron. (5) Abdominal ascites: Qualifiers: Ascites type: malignant Qualified Code(s): R18.0 - Malignant ascites Code(s): R18.8 - Other ascites Status: Acute Assessment and Plan: -12/10 ultrasound-guided paracentesis fluid consistent with exudate and not suggestive of SBP. -12/[address] A/P with antral stenosis and stent, tumor infiltration of small bowel and peritoneum, large volume ascites. -12/13 repeat ultrasound-guided paracentesis, gram stain and cultures pending (6) Hematemesis: Qualifiers: Nausea presence: with nausea Qualified Code(s): K92.0 - Hematemesis Code(s): K92.0 - Hematemesis Status: Acute Assessment and Plan: -Likely due to known gastric cancer. -12/10 hemoglobin 12.6, 12/11 hemoglobin 11.4 after phlebotomies and IV hydration, 12/12 hgb 11.2, 12/13 hgb 11.6 -Continue to monitor Subjective Date/time seen: 12/13/21 11:56 Interval history: 61-year-old female with stage IV gastric adenocarcinoma was admitted December 10 with nausea vomiting with some blood in the vomitus and diarrhea and abdominal discomfort. Underwent thoracentesis and started scheduled Zofran and IV hydration on December 10. Spiked a fever overnight December 11. Started on Cefepime December 12. Repeat thoracentesis December 13. Pt had repeat thoracentesis today due to fever 2 nights ago. She is feeling better since the procedure. Abdominal pain is improved. No N/V. Still generally weak but feels better overall. Results of tap today pending. Review of Systems Review of Systems: All systems reviewed & are unremarkable except as noted in HPI and below Exam Narrative: General. Alert. No acute distress. HEENT. Sclerae anicteric. Mucous membranes moist. Neck Supple Chest clear to auscultation. Normal effort. Heart. Normal S1 and S2. Rate regular. Abdomen. Protuberant. Firm and irregular nodularity most prominent in the left upper quadrant with tenderness to palpation but no rebound or guarding. Extremities without edema cyanosis or clubbing. Musculoskeletal tone and strength symmetric Neurologic cranial nerves 3-12 symmetric to visual inspection. Psychiatric. Alert and oriented to person place time and situation. Affect appropriate. Mood euthymic. Objective Data Vital Signs Vital Signs: Vital Signs -
[2021-12-13 11:58] LABS: Appearance Peritoneal Fluid Hazy (Clear); Color Peritoneal Fluid Yellow (Colorless); Neutrophils Peritoneal Fluid 1 % (0-25); Nucleated Cells Peritoneal Flu 207 /uL (0-500); RBC Peritoneal Fluid 1243 /uL (0-100000); Source Peritoneal Fluid Peritoneal Fluid
[2021-12-13 11:59] LABS: Eosinophils Peritoneal Fluid 2 %; Lymphocytes Peritoneal Fluid 57 %; Macrophages Peritoneal Fluid 21 %; Mesothelial Cells Peritoneal Fluid 6 %; Monocytes Peritoneal Fluid 13 %
[2021-12-13 15:18] VITALS: BP 138/88; PULSE 85; RESP 16; TEMP 36.9; O2SAT 100
[2021-12-13 16:18] VITALS: O2SAT 98
[2021-12-13 20:00] VITALS: PULSE 85; RESP 16; O2SAT 98
[2021-12-13] MEDS: LATANOPROST 0.005% OP SOLN 2.5 ML BTL 1 DROP EACH EYE (21:13)
[2021-12-13 22:44] VITALS: BP 152/95; PULSE 85; RESP 18; TEMP 36.6; O2SAT 98
[2021-12-14 05:48] LABS: Basophils Percent Auto 0.3 % (0.2-1.2); Eosinophils Absolute Auto 0.1 K/mm3 (0-0.3); Eosinophils Percent Auto 1.3 % (0-4.4); Hematocrit 36.4 % (37.0-47.0); Hemoglobin 11.6 g/dL (12.0-15.0); Immature Granulocyte Absolute 0.08 K/mm3 (0.00-0.031); Immature Granulocyte Percent A 0.9 % (0-0.5); Lymphocytes Absolute Auto 1.32 K/mm3 (0.9-3.2); Lymphocytes Percent Auto 15.2 % (18.3-44.2); Mean Corpuscular HGB Conc 31.9 g/dl (32-36); Mean Corpuscular Hemoglobin 28.6 pg (26-34); Mean Corpuscular Volume 89.7 fl (80-100); Mean Platelet Volume 9.2 fl (7.4-10.4); Monocytes Absolute Auto 0.5 K/mm3 (0.1-0.6); Monocytes Percent Auto 6.2 % (2.6-8.5); Neutrophils Absolute Auto 6.6 K/mm3 (1.3-6.7); Neutrophils Percent Auto 76.1 % (45.5-73.1); Platelet Count Result 339 k/mm3 (150-375); Red Blood Count 4.06 M/mm3 (4.2-5.4); Red Cell Distribution Width 13.2 % (11.5-14.5); White Blood Count 8.7 K/mm3 (4.5-10.0)
[2021-12-14 05:54] LABS: Alanine Aminotransferase 26 U/L (4-35); Albumin Level 2.6 g/dL (3.5-5.1); Alkaline Phosphatase 71 U/L (38-126); Anion Gap 5 mmol/L (8-16); Aspartate Amino Transferase 27 U/L (14-36); Bilirubin,Total 0.3 mg/dL (0.2-1.3); Blood Urea Nitrogen 16 mg/dL (7-17); Carbon Dioxide 21 mmol/L (22-30); Chloride 109 mmol/L (98-107); Estimated CRCL calculation 68 ml/min; Estimated Glomerular Filt Rate > 60; Glucose 103 mg/dL (65-110); Potassium 4.5 mmol/L (3.4-5.0); Sodium 135 mmol/L (137-145)
[2021-12-14] MEDS: ONDANSETRON INJ 4 MG/2 ML VIAL 8 MG IV PUSH ×2 (05:55→13:48)
[2021-12-14] MEDS: LEVOTHYROXINE SODIUM 50 MCG TABLET PO (05:55)
[2021-12-14] MEDS: LIOTHYRONINE SODIUM 5 MCG TABLET PO (05:55)
[2021-12-14 07:06] VITALS: BP 113/90; PULSE 110; RESP 18; TEMP 36.7; O2SAT 96
[2021-12-14 08:00] VITALS: PULSE 101; RESP 18; O2SAT 96
[2021-12-14] MEDS: SODIUM CHLORIDE 0.9% IV 1,000 ML 100 ML IV CONT ×2 (09:42→13:56)
[2021-12-14] MEDS: PANTOPRAZOLE 40 MG TABLET PO (09:43)
[2021-12-14] MEDS: METOPROLOL TARTRATE 25 MG TABLET PO (09:43)
--- NOTE | 2021-12-14 12:47 | WPDONCPN ---
Progress Note: A/P - Additional Plan Metastatic gastric cancer with peritoneal carcinomatosis and malignant ascites. Patient had another paracentesis done on December 13 but the fluid is already back. Peritoneal cytology showed adenocarcinoma. Nausea and vomiting is under good control. She has been dealing with constipation. Will prescribe Fleet enema. Hopefully patient can be discharged home in next 1-2 days to start radiation therapy treatment. She has radiation therapy appointment for Monday. Chemotherapy will be started on next Monday. Fever. Patient is on cefepime. Denies any further fever. Peritoneal fluid Gram stain showed no organisms. Fever can be secondary to malignancy. Antibiotics can be discontinued after the completion of this course. Nausea vomiting. This is under good control with Zofran. Patient is also on Phenergan. Constipation. Will prescribe Fleet enema. Malignant ascites. Patient may need to have another round of paracentesis before the discharge. - Time Spent With Patient Total time spent is greater than 50% in coordination of care (as documented) at patient's floor/unit and/or counseling patient: 15 - 25 minutes Subjective Interval history: Metastatic gastric cancer Review of Systems - Review of Systems Patient complain of abdominal distention and fullness got worse after just eating. She also has been complaining of constipation. Complain of tiredness and fatigue. Exam Vital signs: Temp Pulse Resp BP Pulse Ox 36.7 C 101 H 18 113/90 96 12/14/21 07:06 12/14/21 08:00 12/14/21 08:00 12/14/21 07:06 12/14/21 08:00 Narrative: Lungs clear to auscultation bilaterally Cardiovascular regular rate rhythm no murmurs Abdomen distended with ascites with positive fluid thrill Extremities no edema PN: Objective Data - Labs CBC & Chem 7: 12/14/21 05:34 12/14/21 05:34 Labs: Laboratory Results - last 24 hr 12/14/21 12/14/21 05:34 05:34 WBC 8.7 RBC 4.06 L Hgb 11.6 L Hct 36.4 L MCV 89.7 MCH 28.6 MCHC 31.9 L RDW 13.2 Plt Count 339 MPV 9.2 Immature Gran % (Auto) 0.9 H Neut % (Auto) 76.1 H Lymph % (Auto) 15.2 L [place] % (Auto) 6.2 Eos % (Auto) 1.3 Baso % (Auto) 0.3 Lymph # (Auto) 1.32 [place] # (Auto) 0.5 Eos # (Auto) 0.1 Baso # (Auto) 0.0 Abs Immat Gran (auto) 0.08 H Absolute Neuts (auto) 6.6 Absolute Nucleated RBC 0.0 Nucleated RBC % 0.0 Sodium 135 L Potassium 4.5 Chloride 109 H Carbon Dioxide 21 L Anion Gap 5 L BUN 16 Creatinine 0.90 Estim Creat Clear Calc 68 Estimated GFR > 60 Glucose 103 Calcium 8.0 L Total Bilirubin 0.3 AST 27 ALT 26 Alkaline Phosphatase 71 Total Protein 5.0 L Albumin 2.6 L
[2021-12-14 14:27] VITALS: BP 120/82; PULSE 76; RESP 17; TEMP 36.6; O2SAT 98
[2021-12-14] MEDS: ACETAMINOPHEN 325 MG TABLET 650 MG PO (14:50)
--- NOTE | 2021-12-14 15:02 | PM.DS ---
DS: Admitting Diagnosis Discharge Date 12/14/21 Admitting Diagnosis generalized weakness DS: Discharge Diagnosis Discharge Diagnosis (1) Fever: Qualifiers: Fever type: unspecified Qualified Code(s): R50.9 - Fever, unspecified Code(s): R50.9 - Fever, unspecified Status: Acute Assessment and Plan: -Overnight 12/11-11/14 -Only focal findings are intraabdominal -repeat U/s guided paracentesis 12/13, anaerobic culture prelim no WBC or organisms seen -Less likely due to tumor or drug due to associated tachycardia (no temp-pulse dissociation) -12/12 Day 1 cefepime, no fever since initiation of abx. WBC 9.8. BC NGTD. -12/14 Pt has not had recurrence of fever. She is feeling well, abdominal pain has resolved. Had some fullness today prior to enema but that has resolved now that she has had a BM. Discussed case with Dr. Armstrong who agrees with discharge today so that she can get her radiation treatment as scheduled tomorrow. Will send her on Augmentin. Unclear whether fever resolved on it's own or due to the cefepime so will continue abx treatment for a total of 1 week of treatment (2) Generalized weakness: Code(s): R53.1 - Weakness Status: Acute Assessment and Plan: -Multifactorial from nausea, vomiting, diarrhea, and stage IV stomach cancer. -Improved with hydration and paracentesis and control of nausea. (3) UTI (urinary tract infection): Qualifiers: Hematuria presence: without hematuria Urinary tract infection type: acute cystitis Qualified Code(s): N30.00 - Acute cystitis without hematuria Code(s): N39.0 - Urinary tract infection, site not specified Status: Acute Assessment and Plan: -EXCLUDED WITH NEGATIVE CULTURE. -RECEIVED CEFTRIAXONE 12/10 AND 12/11. (4) Malignant neoplasm of pyloric antrum: Code(s): C16.3 - Malignant neoplasm of pyloric antrum Status: Acute Assessment and Plan: -Oncology following. -Symptom management pending initiation of radiation and chemotherapy. -12/12 Added prn IV morphine for pain and prn promethazine for breakthrough nausea; resumed scheduled ondansetron. -improved. will go home tonight to return to clinic for radiation tomorrow. (5) Abdominal ascites: Qualifiers: Ascites type: malignant Qualified Code(s): R18.0 - Malignant ascites Code(s): R18.8 - Other ascites Status: Acute Assessment and Plan: -12/10 ultrasound-guided paracentesis fluid consistent with exudate and not suggestive of SBP. -12/[address] A/P with antral stenosis and stent, tumor infiltration of small bowel and peritoneum, large volume ascites. -12/13 repeat ultrasound-guided paracentesis, gram stain and cultures pending -12/14 - repeat culture prelim no WBC or organisms. Spoke w/ Dr. Armstrong who states they will schedule the next paracentesis outpatient. (6) Hematemesis: Qualifiers: Nausea presence: with nausea Qualified Code(s): K92.0 - Hematemesis Code(s): K92.0 - Hematemesis Status: Acute Assessment and Plan: -Likely due to known gastric cancer. -12/10 hemoglobin 12.6, 12/11 hemoglobin 11.4 after phlebotomies and IV hydration, 12/12 hgb 11.2, 12/13 hgb 11.6 -resolved. pt is stable for discharge DS: Summary Hospital Course Reason for hospitalization: 61-year-old female with stage IV gastric adenocarcinoma was admitted December 10 with nausea vomiting with some blood in the vomitus and diarrhea and abdominal discomfort. Please see HPI for further details. Hospital Course: Please see above for details of hospital course. Status at Discharge Cognitive/behavioral status at discharge: stable Functional status at discharge: independent ambulation Overall status at discharge: patient is progressing back to baseline Time Spent with Patient Time attestation: Total time spent providing and/or coordinating discharge services:
[2021-12-15 04:01] LABS: Glucose Peritoneal Fluid 62 mg/dL; LDH Peritoneal Fluid 291 U/L (<63); Total Protein Peritoneal Fluid <3.0 g/dL
[2021-12-15 13:18] LABS: Albumin Peritoneal Fluid 1.2 g/dL
[2021-12-15 14:12] LABS: Amylase Peritoneal Fluid 17 U/L
--- NOTE | 2021-12-17 10:41 | PC.NURSE ---
Blood cx negative.
--- NOTE | 2021-12-24 10:48 | PC.NURSE ---
Anaerobic Cx abd fluid- is negative.
== END 2021-12-14 17:35 | disposition home or self-care (01) | DRG 375 ==
LOC: ANHED 14:34 → ANH3MED 14:50
PROVIDERS: Internal Medicine; Nurse Practitioner; Nurse Practitioner Adult Health; Admitting Provider Internal Medicine; Emergency Provider Nurse Practitioner Family; PCP Family Medicine; Visit Provider Physician Assistant
DX: C16.3 Malignant neoplasm of pyloric antrum (principal); R18.0 Malignant ascites; C78.6 Secondary malignant neoplasm of retroperitoneum and peritoneum; K92.0 Hematemesis; H40.9 Unspecified glaucoma; K58.9 Irritable bowel syndrome, unspecified; M17.0 Bilateral primary osteoarthritis of knee; M19.09 Primary osteoarthritis, other specified site; M81.0 Age-related osteoporosis without current pathological fracture; E03.9 Hypothyroidism, unspecified; K44.9 Diaphragmatic hernia without obstruction or gangrene; K57.90 Diverticulosis of intestine, part unspecified, without perforation or abscess without bleeding; K21.9 Gastro-esophageal reflux disease without esophagitis; Z86.16 Personal history of COVID-19; Z85.3 Personal history of malignant neoplasm of breast; Z90.710 Acquired absence of both cervix and uterus
CPT/HCPCS: 36415; 49083; 74176; 80053; 81001; 82042; 82150; 82945; 83615; 83690; 83735; 84100; 84157; 85014; 85018; 85025; 85027; 85610; 85730; 87040; 87070; 87075; 87086; 87205; 89051; 96374; 96375; 97161; 99285; A9270; J0692; J0696; J1200; J2270; J2405; J2550; J2765; J3480; J7030

== ENCOUNTER 2021-12-21 11:52 | Emergency (ER) | payer OTHER, SELFPAY ==
--- NOTE | ~2021-12-21 | CT_ITS ---
EXAMINATION: CT abdomen pelvis wo con DATE: 12/21/2021 13:06 INDICATION: Evaluate small bowel obstruction. TECHNIQUE: Computed tomography (CT) of the abdomen and pelvis was performed without intravenous contr ast. The dose-length product was 889.44 mGy-cm. Automated exposure control and iterative reconstructi on technique were employed. COMPARISON: CT dated 12/11/2021. FINDINGS: Lung bases are unremarkable. Heart size normal. No no significant pleural or pericardial ef fusion. There is an abnormal mass involving the gastric antrum with a stent traversing the mass, cons istent with primary malignancy. There is a large volume of ascites. There is fat stranding and nodula rity of the omentum, consistent with peritoneal carcinomatosis. There is probable cirrhosis of the li sue. There is inspissation of fecal material and contrast in the rectum. The spleen is atrophic. Ther e are nonobstructing bilateral renal stones. The pancreas and adrenal glands are unremarkable. Gallbl adder is present. No lymphadenopathy. No significant vascular abnormality. Mild lumbar spondylosis. T here is a liver cyst. No free air. IMPRESSION: 1. Abnormal soft tissue involving the gastric antrum, consistent with primary malignancy with associa sunshine stent traversing the mass. There is peritoneal carcinomatosis with large amount of ascites, likel y malignant. 2: Nonobstructing bilateral nephrolithiasis. Reviewed, dictated and finalized at location A. IMPRESSION: 1. Abnormal soft tissue involving the gastric antrum, consistent with primary m alignancy with associated stent traversing the mass. There is peritoneal carcin omatosis with large amount of ascites, likely malignant. 2: Nonobstructing bilateral nephrolithiasis.
[2021-12-21 11:58] VITALS: BP 133/86; PULSE 110; RESP 14; TEMP 35.9; O2SAT 96
--- NOTE | 2021-12-21 13:06 | PC.NURSE ---
Pt currently undergoing chemo. Noted to have port to right chest with chemo infusing. States she had radiation [employer]. Pt states she has not had a BM in 1 week.
[2021-12-21 13:08] LABS: Add Urine Microscopic? YES; Appearance Urine Cloudy (Clear); Bilirubin Urine Negative (Negative); Blood Urine Negative (Negative); Color Urine Amber (Yellow); Glucose Urine UA Negative (Negative); Ketones Urine Negative (Negative); Leukocyte Esterase Ur Negative LEU/UL (Negative); Mucus Urine Rare /lpf; Nitrate Urine Negative (Negative); Protein Urine Negative (Negative); RBC Urine 0-2 /hpf (0-2); Specific Grav Ur 1.023 (1.001-1.035); Squamous Epithelial Cell Urine Occasional /hpf (Few); WBC Urine 0-3 /hpf
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
--- NOTE | 2021-12-21 14:08 | PC.NURSE ---
IV access established by vascular rn disease management.
[2021-12-21] MEDS: ONDANSETRON INJ 4 MG/2 ML VIAL IV PUSH (14:15)
[2021-12-21] MEDS: SODIUM CHLORIDE 0.9% IV 500 ML 999 ML IV CONT ×2 (14:15→16:15)
[2021-12-21 14:21] VITALS: BP 142/88; PULSE 112; RESP 18; O2SAT 98
[2021-12-21 14:44] LABS: Alanine Aminotransferase 77 U/L (4-35); Albumin Level 3.2 g/dL (3.5-5.1); Alkaline Phosphatase 128 U/L (38-126); Anion Gap 9 mmol/L (8-16); Aspartate Amino Transferase 73 U/L (14-36); Bilirubin,Total 0.5 mg/dL (0.2-1.3); Blood Urea Nitrogen 43 mg/dL (7-17); Calcium 8.6 mg/dL (8.4-10.2); Carbon Dioxide 25 mmol/L (22-30); Chloride 95 mmol/L (98-107); Estimated CRCL calculation 43 ml/min; Estimated Glomerular Filt Rate 38; Glucose 106 mg/dL (65-110); Lipase 402 U/L (23-300); Potassium 4.5 mmol/L (3.4-5.0); Sodium 129 mmol/L (137-145)
[2021-12-21 14:44] LABS: Lactic Acid Reflex 1.1 mmol/L (0.7-2.1)
[2021-12-21 14:53] LABS: Basophils Percent Auto 0.1 % (0.2-1.2); Eosinophils Percent Auto 0.1 % (0-4.4); Hematocrit 37.5 % (37.0-47.0); Hemoglobin 12.3 g/dL (12.0-15.0); Immature Granulocyte Absolute 0.11 K/mm3 (0.00-0.031); Immature Granulocyte Percent A 0.8 % (0-0.5); Lymphocytes Absolute Auto 0.84 K/mm3 (0.9-3.2); Lymphocytes Percent Auto 6.1 % (18.3-44.2); Mean Corpuscular HGB Conc 32.8 g/dl (32-36); Mean Corpuscular Hemoglobin 28.3 pg (26-34); Mean Corpuscular Volume 86.4 fl (80-100); Mean Platelet Volume 9.7 fl (7.4-10.4); Monocytes Absolute Auto 0.7 K/mm3 (0.1-0.6); Neutrophils Absolute Auto 12.1 K/mm3 (1.3-6.7); Neutrophils Percent Auto 87.9 % (45.5-73.1); Platelet Count Result 299 k/mm3 (150-375); Red Blood Count 4.34 M/mm3 (4.2-5.4); Red Cell Distribution Width 13.8 % (11.5-14.5); White Blood Count 13.7 K/mm3 (4.5-10.0)
--- NOTE | 2021-12-21 15:36 | PC.NURSE ---
ERP Otis at bedside for fecal disimpaction.
[2021-12-21 15:37] VITALS: PULSE 112; RESP 18; O2SAT 98
[2021-12-21 16:24] VITALS: BP 111/83; PULSE 113; RESP 18; O2SAT 98
--- NOTE | 2021-12-21 17:40 | PC.NURSE ---
Per radiology department they are unable to do the paracentesis. FRANCIS hilton aware. unable to draw coags at this time. Madeline Mar RN at bedside to attempt ultrasounds lab.
--- NOTE | 2021-12-21 18:06 | PC.NURSE ---
Madeline Mar Rn unable to get blood. FRANCIS hilton aware and bedside with ultrasound.
[2021-12-21 18:15] VITALS: BP 102/80; PULSE 101; RESP 18; O2SAT 98
--- NOTE | 2021-12-21 18:18 | PC.NURSE ---
pt has decided against procedure and will f/u with oncologist.
--- NOTE | 2021-12-21 18:42 | PC.NURSE ---
Pt noted to have rufina blood in bedpan, shown to FRANCIS hilton. Pt placed on bsc per request. States she was able to pass gas but no stool noted.
[2021-12-21 19:28] VITALS: BP 112/68; PULSE 98; RESP 22; O2SAT 99
== END 2021-12-21 19:29 | disposition home or self-care (01) ==
PROVIDERS: Emergency Medicine; Emergency Provider Emergency Medicine; PCP Family Medicine
DX: R10.84 Generalized abdominal pain (principal); R18.8 Other ascites; K59.00 Constipation, unspecified; C16.3 Malignant neoplasm of pyloric antrum; K21.00 Gastro-esophageal reflux disease with esophagitis, without bleeding; K44.9 Diaphragmatic hernia without obstruction or gangrene; K58.2 Mixed irritable bowel syndrome; H40.9 Unspecified glaucoma; M17.10 Unilateral primary osteoarthritis, unspecified knee; M81.0 Age-related osteoporosis without current pathological fracture; Z85.3 Personal history of malignant neoplasm of breast; Z92.3 Personal history of irradiation; Z86.16 Personal history of COVID-19; Z79.899 Other long term (current) drug therapy; N20.0 Calculus of kidney
CPT/HCPCS: 36415; 74176; 80053; 81001; 83605; 83690; 85025; 96361; 96374; 99284; J2405; J7040

== ENCOUNTER 2021-12-23 10:38 | Observation (INO) | payer OTHER, SELFPAY ==
[2021-12-23] VITALS (32 sets, daily range): BP systolic 96–121; BP diastolic 59–99; PULSE 96–115; RESP 14–25; TEMP 36.2–36.8; O2SAT 96–100
--- NOTE | ~2021-12-23 | US_ITS ---
EXAMINATION: US paracentesis abd w/image DATE: 12/23/2021 13:47 INDICATION: Abdominal ascites secondary to stomach cancer TECHNIQUE: The procedure and its risks and benefits were discussed with the patient. Potential risks discussed included bleeding and infection. The skin was prepped and draped in sterile fashion. 1% lid ocaine was used for local anesthesia. Under ultrasound guidance, a 5 Fr catheter with trochar was adv anced into the ascites in the left lower quadrant. Fluid was aspirated into vacuum bottles. The andrés ter was removed, and a dressing was applied. There were no immediate complications. FINDINGS: Ultrasound images demonstrate ascites and the catheter within the fluid. IMPRESSION: 1. Successful ultrasound-guided paracentesis yielding 4000 mL of clear light yellow fluid. Reviewed, dictated and finalized at location A. IMPRESSION: 1. Successful ultrasound-guided paracentesis yielding 4000 mL of clear light y ellow fluid.
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
[2021-12-23] MEDS: ONDANSETRON INJ 4 MG/2 ML VIAL IV PUSH ×2 (12:17→17:04)
[2021-12-23] MEDS: SODIUM CHLORIDE 0.9% IV 1,000 ML 999 ML IV CONT (12:17)
--- NOTE | 2021-12-23 12:30 | PC.NURSE ---
spoke with roberto carlos in [place] and she states that radiologist would be fine with last weeks blood work. port accessed but no blood return for lab work. radiologist and ERP aware
--- NOTE | 2021-12-23 12:50 | PC.NURSE ---
patient to radiology for paracentesis at this time
--- NOTE | 2021-12-23 13:45 | PC.NURSE ---
patient returned from radiology.
[2021-12-23 14:02] LABS: Basophils Percent Auto 0.1 % (0.2-1.2); Hematocrit 36.9 % (37.0-47.0); Hemoglobin 12.1 g/dL (12.0-15.0); Immature Granulocyte Absolute 0.05 K/mm3 (0.00-0.031); Immature Granulocyte Percent A 0.4 % (0-0.5); Lymphocytes Absolute Auto 0.43 K/mm3 (0.9-3.2); Lymphocytes Percent Auto 3.7 % (18.3-44.2); Mean Corpuscular HGB Conc 32.8 g/dl (32-36); Mean Corpuscular Hemoglobin 28.8 pg (26-34); Mean Corpuscular Volume 87.9 fl (80-100); Mean Platelet Volume 9.8 fl (7.4-10.4); Monocytes Absolute Auto 0.1 K/mm3 (0.1-0.6); Monocytes Percent Auto 0.5 % (2.6-8.5); Neutrophils Absolute Auto 10.9 K/mm3 (1.3-6.7); Neutrophils Percent Auto 95.3 % (45.5-73.1); Platelet Count Result 239 k/mm3 (150-375); Red Cell Distribution Width 14.1 % (11.5-14.5); White Blood Count 11.5 K/mm3 (4.5-10.0)
[2021-12-23 14:16] LABS: Alanine Aminotransferase 69 U/L (4-35); Albumin Level 3.2 g/dL (3.5-5.1); Alkaline Phosphatase 114 U/L (38-126); Anion Gap 8 mmol/L (8-16); Aspartate Amino Transferase 63 U/L (14-36); Bilirubin,Total 0.6 mg/dL (0.2-1.3); Blood Urea Nitrogen 60 mg/dL (7-17); Calcium 8.2 mg/dL (8.4-10.2); Carbon Dioxide 26 mmol/L (22-30); Chloride 97 mmol/L (98-107); Estimated CRCL calculation 47 ml/min; Estimated Glomerular Filt Rate 42; Glucose 125 mg/dL (65-110); Lipase 435 U/L (23-300); Potassium 4.4 mmol/L (3.4-5.0); Sodium 131 mmol/L (137-145)
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
[2021-12-23 17:38] LABS: SARS-CoV-2 RNA PCR Negative
[2021-12-23] MEDS: SODIUM CHLORIDE 0.9% IV 1,000 ML 125 ML IV CONT (20:25)
[2021-12-23] MEDS: PROMETHAZINE HCL 25 MG/ML AMPUL 12.5 MG IV PUSH (20:25)
[2021-12-23] MEDS: CENTRAL LINE FLUSH 10 ML IV PUSH (20:25)
--- NOTE | 2021-12-23 23:28 | ADMGEN ---
This patient, jT Villegas, was admitted to 3 [facility] Room 323-02. Patient/family oriented to hospital policies and general routines including ID bracelet, bed and alarms, visiting hours, pain management, procedures, bathroom and other care routines, personal items, smoking policy, room service/diet, and visiting hours. Information on how to activate the Rapid Response Team has been discussed. Patient/Family are encouraged to report perceived risks to care and to ask questions if they do not understand what they are told or what they should do.
[2021-12-24 00:43] VITALS: BMI 31.1
[2021-12-24] MEDS: PROMETHAZINE HCL 25 MG/ML AMPUL 12.5 MG IV PUSH (02:32)
[2021-12-24] MEDS: SODIUM CHLORIDE 0.9% IV 1,000 ML 125 ML IV CONT ×4 (02:42→19:48)
[2021-12-24] MEDS: CENTRAL LINE FLUSH 10 ML IV PUSH ×3 (02:52→19:44)
[2021-12-24 05:46] VITALS: BP 105/76; PULSE 107; RESP 18; TEMP 36.8; O2SAT 100
[2021-12-24 06:31] LABS: Alanine Aminotransferase 60 U/L (4-35); Albumin Level 2.7 g/dL (3.5-5.1); Alkaline Phosphatase 90 U/L (38-126); Anion Gap 8 mmol/L (8-16); Aspartate Amino Transferase 50 U/L (14-36); Bilirubin,Total 0.5 mg/dL (0.2-1.3); Blood Urea Nitrogen 54 mg/dL (7-17); Calcium 7.7 mg/dL (8.4-10.2); Carbon Dioxide 22 mmol/L (22-30); Chloride 103 mmol/L (98-107); Estimated CRCL calculation 50 ml/min; Estimated Glomerular Filt Rate 46; Glucose 106 mg/dL (65-110); Potassium 3.7 mmol/L (3.4-5.0); Sodium 133 mmol/L (137-145)
[2021-12-24 06:39] LABS: Hemoglobin 11.7 g/dL (12.0-15.0); Immature Granulocyte Absolute 0.07 K/mm3 (0.00-0.031); Immature Granulocyte Percent A 0.7 % (0-0.5); Lymphocytes Absolute Auto 0.58 K/mm3 (0.9-3.2); Lymphocytes Percent Auto 5.7 % (18.3-44.2); Mean Corpuscular HGB Conc 32.5 g/dl (32-36); Mean Corpuscular Hemoglobin 28.5 pg (26-34); Mean Corpuscular Volume 87.6 fl (80-100); Mean Platelet Volume 10.3 fl (7.4-10.4); Monocytes Absolute Auto 0.1 K/mm3 (0.1-0.6); Monocytes Percent Auto 0.7 % (2.6-8.5); Neutrophils Absolute Auto 9.5 K/mm3 (1.3-6.7); Neutrophils Percent Auto 92.9 % (45.5-73.1); Platelet Count Result 185 k/mm3 (150-375); Red Blood Count 4.11 M/mm3 (4.2-5.4); White Blood Count 10.2 K/mm3 (4.5-10.0)
[2021-12-24] MEDS: METOCLOPRAMIDE HCL INJ 10 MG/2 ML VIAL IV PUSH ×2 (08:51→15:56)
[2021-12-24] MEDS: ENOXAPARIN 40 MG/0.4 ML SYRINGE SUB-Q (08:52)
--- NOTE | 2021-12-24 09:15 | PM.IMPN ---
Progress Note: A&P Assessment and Plan (1) Intractable nausea and vomiting: Code(s): R11.2 - Nausea with vomiting, unspecified Status: Acute Assessment and Plan: IV fluids for hydration P.r.n. promethazine available since she states that Zofran does not work for her nausea paracentesis which took off 4000ml Did not seem to help her with her nausea and vomiting Could be related to the chemo (2) Ascites, malignant: Code(s): R18.0 - Malignant ascites Status: Acute Assessment and Plan: underwent ultrasound-guided paracentesis today and 4 L of fluid was removed nausea and vomiting is persistent Consider starting her on some spironolactone Consider GI consult Consult oncology (3) Acute dehydration: Code(s): E86.0 - Dehydration Status: Acute Assessment and Plan: Will hydrate patient with IV fluids and encourage oral intake with patient's nausea has improved. (4) Malignant neoplasm of pyloric antrum: Code(s): C16.3 - Malignant neoplasm of pyloric antrum Status: Acute Assessment and Plan: Patient's oncologist has been consult and due appreciating further recommendations. (5) GERARDO (acute kidney injury): Code(s): N17.9 - Acute kidney failure, unspecified Status: Acute Assessment and Plan: BUN/Cr 54/1.20 IV fluids Trend labs Related to vomiting and acute dehydration Time Spent With Patient Time with patient: Greater than 35 minutes Subjective Date/time seen: 12/24/21 0915 Interval history: 12/23/21 17:23 Narrative: Ms. Villegas is a 61-year-old female who presented to the emergency room with complaints of nausea vomiting. Patient has a known history of metastatic gastric cancer and has been receiving chemotherapy as well as radiation. Patient was hospitalized on 12/10/2021 for nausea and vomiting and underwent paracentesis at that time and she stated that did mildly improve her nausea vomiting. Patient states that when she was discharged she felt good, but the next day she began having nausea and vomiting again. Patient states she came to the emergency room today because she was no longer able to hold anything down and she new issues becoming dehydrated. Patient states that she does have oral and ODT Zofran at home, but they have not helped with her nausea or vomiting. Patient states that she had received a 48 hour chemotherapy treatment recently and has been having daily radiation treatments, which she missed today. Patient did have an EGD performed on November 18 of this year that showed ulcerated gastric mass extending from antrum to the angularis and biopsies were taken and they returned positive for gastric cancer. Per Oncology patient has metastatic gastric cancer with peritoneal carcinomatosis and malignant ascites patient also recently had esophageal stent placed for dysphagia. Patient denies any dysuria, hematuria, frequency, or urgency. Patient denies any chest pain, shortness for breath, lightheadedness, dizziness, syncopal, or near syncopal episodes. 12/24/21 0915 Patient was sitting up in bed she was very nauseous. She had her vomit bag in her hand and stated that it was closed but she did know what is coming out. She denies any chest pain, shortness of breath, abdominal pain, sweats, fevers, chills. She did state that she has vomited throughout the night, and is continuously nauseated. Review of Systems Review of Systems: All systems reviewed & are unremarkable except as noted in HPI and below Exam Const: General: cooperative, healthy appearing, no acute distress, well developed, alert and awake Nutritional Appearance: well nourished Orientation/consciousness: patient oriented x3 Limitations: no limitations HENMT: Head: normal to inspection Ears: hearing grossly normal bilaterally General nose exam: Normal external nose present Mouth: Yes Normal oral and palatal mucosa p
[2021-12-24] MEDS: ALBUMIN HUMAN 25% 25 GM/100 ML 100 ML IVPB (12:09)
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
[2021-12-24 14:00] VITALS: BP 122/81; PULSE 96; RESP 16; TEMP 36.6; O2SAT 99
[2021-12-24 14:09] VITALS: BMI 31.1
[2021-12-24 18:05] VITALS: PULSE 80
[2021-12-24] MEDS: METOPROLOL TARTRATE 25 MG TABLET PO (18:05)
[2021-12-24] MEDS: PANTOPRAZOLE 40 MG TABLET PO (18:05)
[2021-12-24] MEDS: LATANOPROST 0.005% OP SOLN 2.5 ML BTL 1 DROP EACH EYE (19:44)
[2021-12-24 21:57] VITALS: BP 110/76; PULSE 96; RESP 16; TEMP 36.8; O2SAT 99
[2021-12-25] MEDS: METOCLOPRAMIDE HCL INJ 10 MG/2 ML VIAL IV PUSH (00:50)
[2021-12-25 06:00] VITALS: BP 110/88; PULSE 93; RESP 16; TEMP 36.2; O2SAT 99
[2021-12-25] MEDS: LEVOTHYROXINE SODIUM 50 MCG TABLET PO (06:37)
[2021-12-25] MEDS: CENTRAL LINE FLUSH 10 ML IV PUSH (06:41)
[2021-12-25 06:50] LABS: Alanine Aminotransferase 45 U/L (4-35); Albumin Level 2.6 g/dL (3.5-5.1); Alkaline Phosphatase 68 U/L (38-126); Anion Gap 5 mmol/L (8-16); Aspartate Amino Transferase 44 U/L (14-36); Bilirubin,Total 0.5 mg/dL (0.2-1.3); Blood Urea Nitrogen 40 mg/dL (7-17); Calcium 7.2 mg/dL (8.4-10.2); Carbon Dioxide 22 mmol/L (22-30); Chloride 107 mmol/L (98-107); Estimated CRCL calculation 66 ml/min; Estimated Glomerular Filt Rate > 60; Glucose 114 mg/dL (65-110); Magnesium 2.5 mg/dL (1.6-2.3); Potassium 2.9 mmol/L (3.4-5.0); Sodium 134 mmol/L (137-145)
--- NOTE | 2021-12-25 07:49 | PM.IMPN ---
Progress Note: A&P Assessment and Plan (1) Intractable nausea and vomiting: Code(s): R11.2 - Nausea with vomiting, unspecified Status: Acute Assessment and Plan: IV fluids for hydration P.r.n. promethazine available since she states that Zofran does not work for her nausea paracentesis which took off 4000ml Did not seem to help her with her nausea and vomiting Could be related to the chemo (2) Ascites, malignant: Code(s): R18.0 - Malignant ascites Status: Acute Assessment and Plan: underwent ultrasound-guided paracentesis today and 4 L of fluid was removed nausea and vomiting is persistent Consider starting her on some spironolactone Consider GI consult Consult oncology (3) Acute dehydration: Code(s): E86.0 - Dehydration Status: Acute Assessment and Plan: Will hydrate patient with IV fluids and encourage oral intake with patient's nausea has improved. (4) Malignant neoplasm of pyloric antrum: Code(s): C16.3 - Malignant neoplasm of pyloric antrum Status: Acute Assessment and Plan: Patient's oncologist has been consult and due appreciating further recommendations. (5) GERARDO (acute kidney injury): Code(s): N17.9 - Acute kidney failure, unspecified Status: Acute Assessment and Plan: BUN/Cr 40/0.90 IV fluids Trend labs Related to vomiting and acute dehydration (6) Hypokalemia: Code(s): E87.6 - Hypokalemia Status: Acute Assessment and Plan: K is 2.9 Secondary to vomiting Replace with 40IV, and 40mg PO if able to take PO Trend labs Labs in the am (7) Transaminitis: Code(s): R74.01 - Elevation of levels of liver transaminase levels Status: Acute Assessment and Plan: AST/ALT 44/45 Probably related to nausea and vomiting Trend labs Hep panel pending Time Spent With Patient Time with patient: Greater than 35 minutes Subjective Date/time seen: 12/25/21 07:49 Interval history: 12/23/21 17:23 Narrative: Ms. Villegas is a 61-year-old female who presented to the emergency room with complaints of nausea vomiting. Patient has a known history of metastatic gastric cancer and has been receiving chemotherapy as well as radiation. Patient was hospitalized on 12/10/2021 for nausea and vomiting and underwent paracentesis at that time and she stated that did mildly improve her nausea vomiting. Patient states that when she was discharged she felt good, but the next day she began having nausea and vomiting again. Patient states she came to the emergency room today because she was no longer able to hold anything down and she new issues becoming dehydrated. Patient states that she does have oral and ODT Zofran at home, but they have not helped with her nausea or vomiting. Patient states that she had received a 48 hour chemotherapy treatment recently and has been having daily radiation treatments, which she missed today. Patient did have an EGD performed on November 18 of this year that showed ulcerated gastric mass extending from antrum to the angularis and biopsies were taken and they returned positive for gastric cancer. Per Oncology patient has metastatic gastric cancer with peritoneal carcinomatosis and malignant ascites patient also recently had esophageal stent placed for dysphagia. Patient denies any dysuria, hematuria, frequency, or urgency. Patient denies any chest pain, shortness for breath, lightheadedness, dizziness, syncopal, or near syncopal episodes. 12/24/21 0915 Patient was sitting up in bed she was very nauseous. She had her vomit bag in her hand and stated that it was closed but she did know what is coming out. She denies any chest pain, shortness of breath, abdominal pain, sweats, fevers, chills. She did state that she has vomited throughout the night, and is continuously nauseated. 12/25/21 Review of Sys
[2021-12-25 08:44] LABS: Basophils Percent Auto 0.1 % (0.2-1.2); Hematocrit 32.3 % (37.0-47.0); Hemoglobin 10.5 g/dL (12.0-15.0); Immature Granulocyte Absolute 0.06 K/mm3 (0.00-0.031); Immature Granulocyte Percent A 0.9 % (0-0.5); Lymphocytes Absolute Auto 0.46 K/mm3 (0.9-3.2); Lymphocytes Percent Auto 6.6 % (18.3-44.2); Mean Corpuscular HGB Conc 32.5 g/dl (32-36); Mean Corpuscular Hemoglobin 28.4 pg (26-34); Mean Corpuscular Volume 87.3 fl (80-100); Mean Platelet Volume 10.4 fl (7.4-10.4); Monocytes Percent Auto 0.3 % (2.6-8.5); Neutrophils Absolute Auto 6.5 K/mm3 (1.3-6.7); Neutrophils Percent Auto 92.1 % (45.5-73.1); Platelet Count Result 154 k/mm3 (150-375); Red Cell Distribution Width 14.1 % (11.5-14.5)
[2021-12-25] MEDS: POTASSIUM CHLORIDE INJ 40 MEQ in SODIUM CHLORIDE 0.9% IV 500 ML 130 MEQ IVPB (08:46)
[2021-12-25] MEDS: POTASSIUM CHLORIDE 20 MEQ PACKET (FOR LIQUID) 40 MEQ PO (08:46)
[2021-12-25] MEDS: ENOXAPARIN 40 MG/0.4 ML SYRINGE SUB-Q (08:47)
[2021-12-25] MEDS: PANTOPRAZOLE 40 MG TABLET PO (08:47)
[2021-12-25 08:48] VITALS: PULSE 70
[2021-12-25] MEDS: LIOTHYRONINE SODIUM 5 MCG TABLET PO (08:48)
[2021-12-25] MEDS: METOPROLOL TARTRATE 25 MG TABLET PO (08:48)
[2021-12-25 09:35] LABS: Hepatitis B Surface Antigen Negative (Negative)
[2021-12-25 09:40] LABS: HAV RESULT Negative (Negative); Hepatitis B Core IgM Result Negative (Negative)
--- NOTE | 2021-12-25 09:45 | PM.DS ---
DS: Admitting Diagnosis Discharge Date 12/25/21 0945 Admitting Diagnosis Malignant ascites DS: Discharge Diagnosis Discharge Diagnosis (1) Intractable nausea and vomiting: Code(s): R11.2 - Nausea with vomiting, unspecified Status: Acute Assessment and Plan: IV fluids for hydration P.r.n. promethazine available since she states that Zofran does not work for her nausea paracentesis which took off 4000ml Did not seem to help her with her nausea and vomiting Could be related to the chemo (2) Ascites, malignant: Code(s): R18.0 - Malignant ascites Status: Acute Assessment and Plan: underwent ultrasound-guided paracentesis today and 4 L of fluid was removed nausea and vomiting is persistent Consider starting her on some spironolactone Consider GI consult Consult oncology (3) Acute dehydration: Code(s): E86.0 - Dehydration Status: Acute Assessment and Plan: Will hydrate patient with IV fluids and encourage oral intake with patient's nausea has improved. (4) Malignant neoplasm of pyloric antrum: Code(s): C16.3 - Malignant neoplasm of pyloric antrum Status: Acute Assessment and Plan: Patient's oncologist has been consult and due appreciating further recommendations. (5) GERARDO (acute kidney injury): Code(s): N17.9 - Acute kidney failure, unspecified Status: Acute Assessment and Plan: BUN/Cr 40/0.90 IV fluids Trend labs Related to vomiting and acute dehydration (6) Hypokalemia: Code(s): E87.6 - Hypokalemia Status: Acute Assessment and Plan: K is 2.9 Secondary to vomiting Replace with 40IV, and 40mg PO if able to take PO Trend labs Labs in the am (7) Transaminitis: Code(s): R74.01 - Elevation of levels of liver transaminase levels Status: Acute Assessment and Plan: AST/ALT 44/45 Probably related to nausea and vomiting Trend labs Hep panel pending DS: Summary Hospital Course Hospital Course: Patient is a 61-year-old female with a past medical history of hypothyroidism, hypertension, gastric cancer who presented to the ED with uncontrolled nausea and vomiting. Patient was taken for paracentesis which did yield 4 L. patient feels a lot better today and is able to tolerate food and has not had any vomiting or diarrhea constipation weakness or fatigue. Patient did have a bowel movement yesterday. She is requesting go home and is feeling better today. I did explain her that I will give her standing order for a paracentesis however she will need to follow up with GI and with Oncology for further instructions. It looks as if the patient has gotten a paracentesis about every week to 2 weeks since November 15. She is doing okay otherwise and has nausea vomiting medications at home. Patient will need to follow up with GI and Oncology. Started her on spironolactone. I reviewed the case with Dr. Carpenter, he recommended that the patient be started on spironolactone and follow up with Dr. Armstrong and GI. He also recommended that the patient get labs in three days. Patient was able to eat a meal. BP was able to handle the diuretic. Education was provided. Status at Discharge Functional status at discharge: independent ambulation Overall status at discharge: patient is progressing back to baseline Time Spent with Patient Time attestation: Total time spent providing and/or coordinating discharge services: 42 minutes Time spent: Greater than 30 minutes Specific discharge activities: Diagnostic testing, chart review, developing a treatment plan, education, care coordination documentation, physical exam, result review Exam Const: General: cooperative, healthy appearing, no acute distress, well developed, alert and awake Nutritional Appearance: well nourished Orientation/consciousness: patient oriented x3 Limitations: no limitati
[2021-12-25 09:52] LABS: Hepatitis C Virus Antibody Negative (Negative)
[2021-12-25 14:00] VITALS: BP 108/80; PULSE 93; RESP 18; TEMP 36.6; O2SAT 100
[2021-12-25] MEDS: SPIRONOLACTONE 50 MG TABLET 100 MG PO (15:42)
[2021-12-25 15:52] LABS: Potassium 3.6 mmol/L (3.4-5.0)
[2021-12-25] MEDS: HEPARIN SODIUM LOCK FLUSH 500 UNITS/5 ML VIAL IV PUSH (18:20)
== END 2021-12-25 18:33 | disposition home or self-care (01) ==
LOC: ANHED 16:07 → ANH3MEDSUR 12-24 08:32
PROVIDERS: Nurse Practitioner Adult Health; Admitting Provider Internal Medicine; Emergency Provider Nurse Practitioner Family; PCP Family Medicine; Visit Provider Nurse Practitioner
DX: R11.2 Nausea with vomiting, unspecified (principal); R18.0 Malignant ascites; C78.6 Secondary malignant neoplasm of retroperitoneum and peritoneum; C16.3 Malignant neoplasm of pyloric antrum; H26.9 Unspecified cataract; K57.30 Diverticulosis of large intestine without perforation or abscess without bleeding; K21.9 Gastro-esophageal reflux disease without esophagitis; H40.9 Unspecified glaucoma; K44.9 Diaphragmatic hernia without obstruction or gangrene; Z85.3 Personal history of malignant neoplasm of breast; E03.9 Hypothyroidism, unspecified; K58.9 Irritable bowel syndrome, unspecified; M17.0 Bilateral primary osteoarthritis of knee; M47.9 Spondylosis, unspecified; Z20.822 Contact with and (suspected) exposure to COVID-19; E87.1 Hypo-osmolality and hyponatremia; E86.0 Dehydration; N17.9 Acute kidney failure, unspecified; E87.6 Hypokalemia
CPT/HCPCS: 36415; 49083; 80053; 80074; 83690; 83735; 84132; 85025; 96361; 96372; 96374; 96375; 96376; 99285; A9270; C9803; G0378; J1642; J1650; J2405; J2550; J2765; J3480; J7030; J7040; P9047; U0003; U0005